=== PATIENT | female | born 1970 | race African-American/Black ===

== ENCOUNTER 2018-01-30 17:31 | Inpatient (IN) | payer OTHER ==
--- NOTE | 2018-01-30 18:41 | PDOC ---
History of Present Illness - General Chief Complaint: Injury Stated Complaint: FOOT PAIN Time Seen by Provider: 01/30/18 18:36 - History of Present Illness Initial Comments: 01/30/18 18:39 47-year-old female with a past medical history history significant for hypertension presents for evaluation of left ankle pain after slip and fall in the bathroom today. She did not hit her head. There was no loss of consciousness postinjury nausea vomiting headache or visual changes. L Ankle pain is her only complaint. Past History - Past Medical History Allergies/Adverse Reactions: Allergies Allergy/AdvReac Type Severity Reaction Status Date / Time No Known Allergies Allergy Verified 01/30/18 19:20 Home Medications: Ambulatory Orders Amlodipine Besylate 10 mg PO ASDIR 01/30/18 - Suicide/Smoking/Psychosocial Hx Smoking History: Never smoked Hx Alcohol Use: Yes (Social) Drug/Substance Use Hx: No Review of Systems - Review of Systems Musculoskeletal: Yes: Joint Pain *Physical Exam - Vital Signs Last Vital Signs Temp Pulse Resp BP Pulse Ox 97.5 F L 121 H 20 141/94 98 01/30/18 17:43 01/30/18 17:43 01/30/18 17:43 01/30/18 17:43 01/30/18 17:43 - Physical Exam Comments: 01/30/18 18:40 Left ankle skin color and temperature are normal. There is swelling about the medial aspect and lateral aspect of the left ankle. She is unable to flex and extend her ankle. She moves her toes she has no gross sensorimotor deficits. Is no tenderness about the knee proximal fibula or along its distal coarse. She is neurovascularly intact. Unable to tolerate stability testing at this point. Moderate Sedation - Procedure Monitoring Vital Signs: Procedure Monitoring Vital Signs Temperature 97.5 F L 01/30/18 17:43 Pulse Rate 121 H 01/30/18 17:43 Respiratory Rate 20 01/30/18 17:43 Blood Pressure 141/94 01/30/18 17:43 O2 Sat by Pulse Oximetry (%) 98 01/30/18 17:43 ED Treatment Course - RADIOLOGY Radiology Studies Ordered: Category Date Time Status ANKLE-LEFT [RAD] Stat Radiology 01/30/18 18:38 Ordered Medical Decision Making - Medical Decision Making 01/30/18 20:05 Under aseptic technique 10 mL of 1% lidocaine without epinephrine was injected intra-articularly to the left ankle. After appropriate anesthesia gentle traction and manipulation was done and fracture was reduced. Sugar tong and posterior splint was applied with a gentle Tico wrap. This was tolerated well. *DC/Admit/Observation/Transfer Diagnosis at time of Disposition: Ankle fracture, left - Discharge Dispostion Disposition: HOME Condition at time of disposition: Stable Decision to Admit order: No - Referrals Referrals: Mary Jo Dickinson [Primary Care Provider] - Trent Drummond MD [Staff Physician] - - Patient Instructions Printed Discharge Instructions: Ankle Fracture, DI for Ankle Fracture Additional Instructions: Please follow-up with orthopedic surgery in 2-3 days for further evaluation and treatment options. Return to the emergency room should symptoms worsen or go unresolved. He may continue to take her regular pain medicine as prescribed. Also elevate your ankle above the level of your heart to decrease the swelling. Again please remain nonweightbearing with the use of crutches and follow-up with orthopedic surgery in 2-3 days. Return to the emergency room should you have any further issues. - Post Discharge Activity
[2018-01-30] MEDS ORDERED: LIDOCAINE HCL 1%, 10 MG/ML (50 mL VIAL) SQ ONE (19:17)
[2018-01-30] MEDS ORDERED: LIDOCAINE HCL 1%, 10 MG/ML (20ML VIAL) ONE (19:20)
--- NOTE | 2018-01-30 20:28 | PDOC ---
*Physical Exam - Vital Signs Last Vital Signs Temp Pulse Resp BP Pulse Ox 97.5 F L 121 H 20 141/94 98 01/30/18 17:43 01/30/18 17:43 01/30/18 17:43 01/30/18 17:43 01/30/18 17:43 ED Treatment Course - Medications Given in the ED: ED Medications Discontinued Medications Generic Name Dose Route Start Last Admin Trade Name Freq PRN Reason Stop Dose Admin Lidocaine HCl 10 ml 01/30/18 19:17 01/30/18 19:20 Xylocaine 1% SQ 01/30/18 19:18 10 ml ONCE ONE Administration Medical Decision Making - Medical Decision Making 01/30/18 20:44 patient is placed of observation. patient signed out to Dr. Valdes/ Dr. wadsworth *DC/Admit/Observation/Transfer Diagnosis at time of Disposition: Inability to bear weight Ankle fracture, left Qualifiers: Encounter type: initial encounter Fracture type: closed Qualified Code(s): S82.892A - Other fracture of left lower leg, initial encounter for closed fracture - Discharge Dispostion Condition at time of disposition: Stable Decision to Admit order: Yes - Referrals Referrals: Trent Drummond MD [Staff Physician] - Mary Jo Dickinson [Primary Care Provider] - - Patient Instructions Printed Discharge Instructions: Ankle Fracture, DI for Ankle Fracture Additional Instructions: Please follow-up with orthopedic surgery in 2-3 days for further evaluation and treatment options. Return to the emergency room should symptoms worsen or go unresolved. He may continue to take her regular pain medicine as prescribed. Also elevate your ankle above the level of your heart to decrease the swelling. Again please remain nonweightbearing with the use of crutches and follow-up with orthopedic surgery in 2-3 days. Return to the emergency room should you have any further issues. - Post Discharge Activity
[2018-01-30] MEDS ORDERED: ACETAMINOPHEN 325 MG TABLET (FP) PO PRN (21:37)
--- NOTE | 2018-01-30 21:44 | HOSP ---
Physical Examination Vital Signs: Vital Signs Temperature 97.5 F L 01/30/18 17:43 Pulse Rate 121 H 01/30/18 17:43 Respiratory Rate 20 01/30/18 17:43 Blood Pressure 141/94 01/30/18 17:43 O2 Sat by Pulse Oximetry (%) 98 01/30/18 17:43
--- NOTE | 2018-01-30 21:56 | HP ---
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 Pt was sitting and when she stood up her L leg gave out and she fell on her knee and L side. pt attempted to get up and fell again. Denies hitting her head, LOC, or postinjury n/v, EAGLE or visual changes. L Ankle pain is her only complaint. pt denies any fevers, chills, sob, cp, n/v/d, urinary sxs. Of note pt has peripheral neuropathy and balance issues 2/2 her chemo tx in the past. In addition pt reports in the past 1-2 months joint pain in hands and feet 2/2 anastrazole tx (needs to be on for 10yrs). Has been following w/ neurologist Mary Jo Dickinson who dcd anastrazole 2 wks ago. pt says pain has not improved but has not worsened. ER course was notable for: (1)Under aseptic technique 10 mL of 1% lidocaine without epinephrine was injected intra-articularly to the left ankle. After appropriate anesthesia gentle traction and manipulation was done and fracture was reduced. Sugar tong and posterior splint was applied with a gentle Tico wrap. This was tolerated well. (2) L ankle XR - + fibular frx, per my read (3) pt unable to ambulate even w/ crutches. 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, will be removed soon R side was removed 2/2 infx PAST SURGICAL HISTORY: as per HPI Social History: Smoking: denies Alcohol: occasional Drugs: denies Family History: dad HTN, paternal side colon CA, lung CA Allergies No Known Allergies Allergy (Verified 01/30/18 19:20) HOME MEDICATIONS: anastrazole, was dcd 2 wks ago 2/2 causing joint pain zolidex injection q4wks B12 shots Home Medications Medication Instructions Recorded Amlodipine Besylate 10 mg PO ASDIR 01/30/18 REVIEW OF SYSTEMS as per HPI PHYSICAL EXAMINATION Vital Signs - 24 hr 01/30/18 17:43 Temperature 97.5 F L Pulse Rate 121 H Respiratory 20 Rate Blood Pressure 141/94 O2 Sat by Pulse 98 Oximetry (%) GENERAL: AOX3 NAD HEAD: NCAT EYES: EOMI, sclera anicteric, conjunctiva clear. No lid lag. EARS, NOSE, THROAT: nares patent, oropharynx clear without exudates. MMM NECK: Normal range of motion, supple without lymphadenopathy, JVD, or masses. LUNGS: CTAB HEART: RRR, normal S1 and S2 without m/r/g ABDOMEN: Soft, NT ND +BS, no guarding, no rebound, no masses. MUSCULOSKELETAL: Normal range of motion at all joints. No bony deformities or tenderness. UPPER EXTREMITIES: 2+ pulses, warm, well-perfused. No cyanosis. No clubbing. No peripheral edema. LOWER EXTREMITIES: 2+ pulses, warm, well-perfused. No peripheral edema. +LLE cast NEUROLOGICAL: Cranial nerves II-XII intact. Normal speech. chronic decreased sensation b/l hands, chronic decreased sensation b/l LE. strength 5/5 UE, 5/5 RLE, LLE unable to asses due to cast PSYCHIATRIC: Cooperative. Good eye contact. Appropriate mood and affect. SKIN: Warm, dry, normal turgor, no rashes or lesions noted, normal capillary refill. 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 Found w/ L fibular frx on wet read of XR, fracture reduced and splinted LLE fracture - L ankle XR - + fibular frx, per my read reduced and splinted in ED pt unable to ambulate even w/ crutches. says hard to use 2/2 peripheral neuropathy and weakness/pain in her hands pain ctl -tylenol AM labs chk vit D 25OH PT eval fall risk precautions consider ortho consult HTN c/w home dose amlodipine Breast Cancer - s/p b/l masectomy, chemo, and herceptin in 2013. stable anastrazole, was dcd by neurologist 2 wks ago 2/2 causing joint pain FEN no IVF replete prn sodium ctl diet ppx SQH Dispo obs 2/2 unable to ambulate even w/ crutches PT eval pt will likely need CECY at some point Visit type - Emergency Visit Emergency Visit: Yes Care time: The patient presented to the Emergency Department on the above date and was hospitalized for further evaluation of their emergent condition. - New Patient This patient is new to me today: Yes Date on this admission: 01/30/18 - Critical Care Critical Care patient: No
[2018-01-30 22:14] LABS: HEMATOCRIT 37.2 % (32.4-45.2); MCH 33.5 pg (25.7-33.7); MCHC 34.9 g/dl (32.0-36.0); MEAN PLT VOLUME 8.6 fl (7.5-11.1); PLATELET COUNT 328 K/MM3 (134-434); RBC 3.87 M/mm3 (3.60-5.2); RDW 13.8 % (11.6-15.6); WHITE BLOOD COUNT 8.6 K/mm3 (4.0-10.0)
[2018-01-30] MEDS ORDERED: HEPARIN NA (PORCINE) 5,000 UNITS/ML 1ML VIAL ONE (22:17)
[2018-01-30] MEDS: HEPARIN NA (PORCINE) 5,000 UNITS/ML 1ML VIAL SQ SCH (22:21)
--- NOTE | 2018-01-30 23:29 | PN ---
Teaching Attending Note Name of Resident: Klever Alejo ATTENDING PHYSICIAN STATEMENT I saw and evaluated the patient. I reviewed the resident's note and discussed the case with the resident. I agree with the resident's findings and plan as documented. SUBJECTIVE: OBJECTIVE: ASSESSMENT AND PLAN: 47 y/o female presented after the patient fell in the bathroom twisted her ankle leading to a fracture, patient came to the ER, for which she had a cast placed and is being admitted for PT evaluation due to unsafe discharge, patient cannot walk on her feet due to neuropathy plan: admit to med/surge c/w amlodipine 10mg daily PT evaluation start the patient on oxycodone 10/325mg q6hr prn neurology consult patient take b12 injections. repeat b12 levels repeat folate levels
[2018-01-30 23:43] LABS: ANION GAP 9 MMOL/L (8-16); BLOOD UREA NITROGEN 7 mg/dL (7-18); CALCIUM 9.3 mg/dL (8.5-10.1); CHLORIDE 103 mmol/L (98-107); CO2 27 mmol/L (21-32); CREATININE 0.8 mg/dL (0.55-1.3); GLUCOSE,RANDOM 93 mg/dL (74-106); MAGNESIUM 1.6 mg/dL (1.8-2.4); PHOSPHOROUS 3.3 mg/dL (2.5-4.9); POTASSIUM 3.8 mmol/L (3.5-5.1); SODIUM 139 mmol/L (136-145)
[2018-01-31] MEDS ORDERED: MAGNESIUM OXIDE 400 MG TABLET (FP) PO ONE (01:44)
[2018-01-31] MEDS: HEPARIN NA (PORCINE) 5,000 UNITS/ML 1ML VIAL SQ SCH (06:26)
[2018-01-31] MEDS: amLODIPine BESYLATE 10 MG TABLET (FP) PO SCH (10:14)
--- NOTE | 2018-01-31 12:39 | CONSULT ---
Consult - text type - Consultation Consultation Note: ORTHOPEDIC SURGERY CONSULTATION NOTE Department of Orthopedic Surgery HISTORY OF PRESENT ILLNESS Ms. Cordova is a 47 year old female who was admitted to [facility] via the ER due to a left ankle fracture, and inability to ambulate. The orthopedic service was consulted for left ankle fracture. The injury occurred yesterday afternoon around 3pm. The patient states she was in the bathroom getting up from the toilet when her right foot slipped, and she landed awkwardly onto her left foot. She tried to get up again onto her left ankle, however she had significant pain and was not able to get up. The patient notes pain and swelling of her left ankle, which improves with rest and elevation. Denies any other injuries. Denies constitutional complaints. She states that she has a history of neuropathy being treated by a neurologist, and has parasthesias of bilateral lower and upper extremities. Denies/Endorses tobacco use, drug use, alcohol abuse. The patient lives with her and uses no assistive devices at baseline. She was unable to ambulate with a walker or crutches while NWB on the LLE. FAMILY HISTORY na REVIEW OF SYMPTOMS A twelve-point review of systems was performed and was negative except as noted in HPI. PHYSICAL EXAM Constitutional: Alert and oriented to person, place, and time. Appears well- developed and well-nourished. No acute distress, appropriate mood and affect. Right Upper Extremity: Skin warm, dry, and intact; no lesions, rashes or ulcers noted. Muscle mass equal and symmetric to contralateral side. No atrophy noted. No masses or effusions noted. No tenderness to palpation all joints; nontender throughout rest of extremity. Full passive and active ROM, free from pain. Joints stable with no pathologic laxity. M/R/U/MSK/AX motor intact; Has some parasthesias of her distal fingers secondary to chronic neuropathy; 2+ radial pulses; Cap refill brisk. Tone and reflexes normal. Left Upper Extremity: Skin warm, dry, and intact; no lesions, rashes or ulcers noted. Muscle mass equal and symmetric to contralateral side. No atrophy noted. No masses or effusions noted. No tenderness to palpation all joints; nontender throughout rest of extremity. Full passive and active ROM, free from pain. Joints stable with no pathologic laxity. M/R/U/MSK/AX motor intact; Has some parasthesias of her distal fingers secondary to chronic neuropathy; 2+ radial pulses; Cap refill brisk. Tone and reflexes normal. Right Lower Extremity: Skin warm, dry, and intact; no lesions, rashes or ulcers noted. Muscle mass equal and symmetric to contralateral side. No atrophy noted. No masses or effusions noted. No tenderness to palpation all joints; nontender throughout rest of extremity. No cords or calf tenderness No significant calf/ankle edema. Full passive and active ROM, free from pain. Joints stable with no pathologic laxity. EHL/TA/GS motor intact; Has some parasthesias of her distal toes and forefoot and sole of her foot secondary to chronic neuropathy; 2+ DP pulses; Cap refill brisk. Tone and reflexes normal. Left Lower Extremity: Splint c/d/i - removed for evaluation of ankle; Skin warm , dry, and intact; no lesions, rashes or ulcers noted. Muscle mass equal and symmetric to contralateral side. No atrophy noted. No masses noted. Tender to palpation at the lateral malleolus, as well as the medial malleolus; Nontender throughout rest of extremity. No cords or calf tenderness. There is mild ankle swelling of the medial and lateral aspects of the ankle. Limted passive and active ROM, secondary to pain and swelling. Joints stable with no pathologic laxity. EHL/TA/GS motor intact; Has some parasthesias of her distal toes and forefoot and sole of her foot secondary to chronic neuropathy; 2+ DP pulses; Cap refill brisk. Tone and reflexes normal. Active Problems Problem Status Category Onset Ankle fracture, left Acute Medical Inability to bear weight Acute Medical Social History Smoking history Never smoked Hx Alcohol Use Yes: Social Allergies Allergy/AdvReac Type Severity Reaction Status Date / Time No Known Allergies Allergy Verified 01/30/18 19:20 Active Medications Generic Name Dose Route Start Last Admin Trade Name Freq PRN Reason Stop Dose Admin Acetaminophen 650 mg 01/30/18 21:37 01/31/18 04:18 Tylenol - PO 650 mg Q4H PRN Administration PAIN LEVEL 6-10 Amlodipine Besylate 10 mg 01/31/18 10:00 01/31/18 10:14 Norvasc - PO 10 mg DAILY SYDNIE Administration Heparin Sodium (Porcine) 5,000 unit 01/30/18 22:00 01/31/18 06:26 Heparin - SQ 5,000 unit TID SYDNIE Administration Vital Signs (last) Temp Pulse Resp BP Pulse Ox 99.0 F 105 H 20 116/63 98 01/31/18 06:00 01/31/18 06:00 01/31/18 06:00 01/31/18 06:00 01/30/18 17:43 Intake and Output 01/29/18 01/30/18 01/31/18 23:59 23:59 23:59 Intake Total 200 100 Balance 200 100 Intake: Oral 200 100 Other: Voiding Method Bedpan Weight 242 lb 8.136 oz 245 lb 4 oz Height 5 ft 8 in 5 ft 8 in Body Mass Index (BMI) 36.8 37.3 Weight Measurement Method Built in Bedscale Weight Measurement Method Est/Stated by Patient Laboratory 01/30/18 22:01 01/30/18 22:01 IMAGING I personally reviewed all radiographs, CT, and other imaging. They demonstrate a left distal fibula fracture, with widening of the medial clear space. No bony lesions, dislocations, or subluxations seen. ASSESSMENT AND PLAN Ms. Cordova is a 47 year old female presenting status post fall with a left sided distal fibula bimalleolar equivalent fracture. We have reviewed the imaging and clinical findings in detail, as well as their potential implications. This is an operative fracture. NPO past midnight. - Hold Heparin past midnight - Needs Medical Clearance for surgery NWB LLE in splint - Keep splint clean/dry, elevated, and iced CBC/BMP/Coags Type and Screen IVF when NPO: LR EKG CXR UA - Urine Preg Plan for Surgery 02/01/18 at 1pm. All questions were answered. Thank you for involving our team in the care of this patient. Please call us at [phone] with questions
[2018-01-31 14:26] LABS: HEMATOCRIT 35.2 % (32.4-45.2); HEMOGLOBIN 12.1 GM/dL (10.7-15.3); MCH 33.5 pg (25.7-33.7); MCHC 34.5 g/dl (32.0-36.0); MEAN CELL VOLUME 97.2 fl (80-96); MEAN PLT VOLUME 9.3 fl (7.5-11.1); PLATELET COUNT 281 K/MM3 (134-434); RBC 3.62 M/mm3 (3.60-5.2); RDW 13.6 % (11.6-15.6); WHITE BLOOD COUNT 4.9 K/mm3 (4.0-10.0)
[2018-01-31 14:35] LABS: INR 1.11 (0.83-1.09); PROTHROMBIN TIME (PATIENT) 13.1 SEC (9.7-13.0)
--- NOTE | 2018-01-31 14:51 | PN ---
Teaching Attending Note Name of Resident: Beata Griffiths ATTENDING PHYSICIAN STATEMENT I saw and evaluated the patient. I reviewed the resident's note and discussed the case with the resident. I agree with the resident's findings and plan as documented. SUBJECTIVE: Mrs Cordova complains of ankle pain but otherwise without complaint. No cp, sob, n/v. OBJECTIVE: Last Vital Signs Temp Pulse Resp BP Pulse Ox 37.0 C 103 H 20 137/83 98 01/31/18 15:44 01/31/18 15:44 01/31/18 15:44 01/31/18 15:44 01/30/18 17:43 Gen: nad, obese Pulm: ctab w/o w/r/r CV: rrr w/o m/r/g Abd: +bs, s/nt/nd Ext: L ankle wrapped CBC, BMP 01/31/18 13:55 01/31/18 13:55
[2018-01-31 15:02] LABS: ANION GAP 9 MMOL/L (8-16); BLOOD UREA NITROGEN 9 mg/dL (7-18); CALCIUM 9.1 mg/dL (8.5-10.1); CHLORIDE 104 mmol/L (98-107); CO2 27 mmol/L (21-32); CREATININE 0.6 mg/dL (0.55-1.3); GLUCOSE,RANDOM 90 mg/dL (74-106); PHOSPHOROUS 3.7 mg/dL (2.5-4.9); POTASSIUM 3.8 mmol/L (3.5-5.1); SODIUM 141 mmol/L (136-145)
--- NOTE | 2018-01-31 16:02 | PN ---
Physical Exam: SUBJECTIVE: Patient seen and examined at bed side this morning. States her pain in the left ankle is decreased. Denies any other symptoms. OBJECTIVE: Vital Signs Period Temp Pulse Resp BP Sys/Chavira Pulse Ox Last 24 Hr 97.5 F-99.0 F 99-121 19-20 116-141/63-94 98 GENERAL: Morbidly obese female, is lying in bed, awake, alert, and fully oriented, in no acute distress. HEAD: Normal with no signs of trauma. EYES: EOM intact, no pallor or icterus. ENT: Ears normal, moist mucous membranes. NECK: Supple, no JVD. LUNGS: B/L Breath sounds equal, clear to auscultation bilaterally, no wheezes, no crackles, no accessory muscle use. 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 HEART: Regular rate and rhythm, S1, S2 without murmur. ABDOMEN: Soft, nontender, no organomegaly. UPPER EXTREMITIES: 2+ pulses, warm, well-perfused, no edema. LOWER EXTREMITIES: 2+ pulses, warm, well-perfused, Left leg elevated, dressing in place over the left ankle, no color changes of the toes, able to move, normal sensation. NEUROLOGICAL: No facial droop, Normal speech, gait not observed. PSYCH: Normal mood, normal affect. SKIN: Warm, dry, normal turgor, no rashes or lesions noted Laboratory Results - last 24 hr 01/30/18 01/30/18 01/31/18 22:01 22:01 13:55 WBC 8.6 4.9 RBC 3.87 3.62 Hgb 13.0 12.1 Hct 37.2 35.2 MCV 96.0 97.2 H MCH 33.5 33.5 MCHC 34.9 34.5 RDW 13.8 13.6 Plt Count 328 281 MPV 8.6 9.3 PT with INR INR Sodium 139 Potassium 3.8 Chloride 103 Carbon Dioxide 27 Anion Gap 9 BUN 7 Creatinine 0.8 Creat Clearance w eGFR > 60 Random Glucose 93 Calcium 9.3 Phosphorus 3.3 Magnesium 1.6 L Blood Type Antibody Screen 01/31/18 01/31/18 01/31/18 13:55 13:55 13:55 WBC RBC Hgb Hct MCV MCH MCHC RDW Plt Count MPV PT with INR 13.10 H INR 1.11 H Sodium 141 Potassium 3.8 Chloride 104 Carbon Dioxide 27 Anion Gap 9 BUN 9 Creatinine 0.6 Creat Clearance w eGFR > 60 Random Glucose 90 Calcium 9.1 Phosphorus 3.7 Magnesium 2.0 Blood Type O POSITIVE Antibody Screen Negative Active Medications Generic Name Dose Route Start Last Admin Trade Name Freq PRN Reason Stop Dose Admin Acetaminophen 650 mg 01/30/18 21:37 01/31/18 04:18 Tylenol - PO 650 mg Q4H PRN Administration PAIN LEVEL 6-10 Amlodipine Besylate 10 mg 01/31/18 10:00 01/31/18 10:14 Norvasc - PO 10 mg DAILY SYDNIE Administration Heparin Sodium (Porcine) 5,000 unit 01/31/18 22:00 Heparin - SQ 01/31/18 22:01 ONCE ONE ASSESSMENT/PLAN: Patient is a 47 year old female with PMHX of HTN, Breast cancer s/p B/L masectomy 2015, chemo, and herceptin in 2013, peripheral neuropathy secondary to chemo presented s/p mechanical fall x2 in the bathroom # Left distal fibula fracture from mechanical fall s/p reduced and splinted in the ED Evaluated by Ortho who recommends surgery tomorrow NPO after midnight Type and screen done, Urine for preg negative, labs unremarkable, vitals stable. IV NS @ 100 mls/hr after midnight Pain control with PO tylenol Heparin sq on hold # HTN continue home dose Amlodipine 10 mg PO daily. # Breast Cancer s/p B/L masectomy and chemo on remission F/up as outpatient with heme/onc # Peripheral neuropathy likely due to chemo Has difficulty ambulating. Would recommend f/up with neurologist as outpatient. Anastrazole was discontinued 2 weeks ago due to arthritis and pain in her joints, as per the patient. # FEN IV IVF starting midnight Electrolytes WNL NPO after midnight # Prophylaxis For DVT: Heparin sq on hold. For GI: Not indicated # Code Status FUll Code # Dispo:Admitted in Med/Surg inpatient. Duration of stay unknown. Illness, Investigation and Plan of care explained to the patient. She verbalized understanding. Case discussed with Dr. Jaime. Visit type - Emergency Visit Emergency Visit: Yes ED Registration Date: 01/31/18 Care time: The patient presented to the Emergency Department on the above date and was hospitalized for further evaluation of their emergent condition. - New Patient This patient is new to me today: Yes Date on this admission: 01/31/18 - Critical Care Critical Care patient: No - Discharge Referral Referred to [facility] No
--- NOTE | 2018-01-31 16:57 | EKG ---
Test Reason : Blood Pressure : / mmHG Vent. Rate : 100 BPM Atrial Rate : 100 BPM P-R Int : 160 ms QRS Dur : 076 ms QT Int : 338 ms P-R-T Axes : 038 -10 013 degrees QTc Int : 436 ms NORMAL SINUS RHYTHM MINIMAL VOLTAGE CRITERIA FOR LVH, MAY BE NORMAL VARIANT BORDERLINE ECG NO PREVIOUS ECGS AVAILABLE Confirmed by KIM VALIENTE, ASHOK ([id number]) on 01/31/2018 4:57:11 PM Referred By: Confirmed By:ASHOK ALVAREZ MD
[2018-01-31] MEDS ORDERED: HEPARIN NA (PORCINE) 5,000 UNITS/ML 1ML VIAL SQ ONE (22:00)
[2018-02-01] MEDS ORDERED: SODIUM CHLORIDE 1,000 ML IV SCH (00:01)
[2018-02-01 08:09] LABS: HEMOGLOBIN 10.6 GM/dL (10.7-15.3); MCH 31.6 pg (25.7-33.7); MCHC 32.1 g/dl (32.0-36.0); MEAN CELL VOLUME 98.4 fl (80-96); PLATELET COUNT 230 K/MM3 (134-434); RBC 3.36 M/mm3 (3.60-5.2); RDW 13.8 % (11.6-15.6); WHITE BLOOD COUNT 4.5 K/mm3 (4.0-10.0)
[2018-02-01 08:17] LABS: INR 1.13 (0.83-1.09); PROTHROMBIN TIME (PATIENT) 13.3 SEC (9.7-13.0)
[2018-02-01 08:30] LABS: ANION GAP 8 MMOL/L (8-16); BLOOD UREA NITROGEN 9 mg/dL (7-18); CALCIUM 8.2 mg/dL (8.5-10.1); CHLORIDE 108 mmol/L (98-107); CO2 27 mmol/L (21-32); CREATININE 0.5 mg/dL (0.55-1.3); GLUCOSE,RANDOM 97 mg/dL (74-106); MAGNESIUM 1.9 mg/dL (1.8-2.4); PHOSPHOROUS 4.2 mg/dL (2.5-4.9); POTASSIUM 3.4 mmol/L (3.5-5.1); SODIUM 143 mmol/L (136-145)
--- NOTE | 2018-02-01 10:07 | PN ---
Physical Exam: SUBJECTIVE: Patient seen and examined at bed side. States she had sharp pain in the left lower ext since last night and noticed more swelling of the left leg extending towards the left knee. Denies fever, chills, rigors, sweating, chest pain, sob, cough, palpitation, abdominal pain, nasuea or vomiting. No acute overnight events. OBJECTIVE: Vital Signs Period Temp Pulse Resp BP Sys/Chavira Pulse Ox Last 24 Hr 98.4 F-98.6 F 97-103 18-20 130-137/80-83 98 GENERAL: Morbidly obese female, is lying in bed, awake, alert, and fully oriented, in no acute distress. HEAD: Normal with no signs of trauma. EYES: EOM intact, no pallor or icterus. ENT: Ears normal, moist mucous membranes. NECK: Supple, no JVD. LUNGS: B/L Breath sounds equal, clear to auscultation bilaterally, no wheezes, no crackles, no accessory muscle use. CHEST: B/L mastectomy, tissue spanisher in the left breast in place. HEART: Regular rate and rhythm, S1, S2 without murmur. ABDOMEN: Soft, nontender, no organomegaly. UPPER EXTREMITIES: 2+ pulses, warm, well-perfused, no edema. LOWER EXTREMITIES: 2+ pulses, warm, well-perfused, Left leg elevated, dressing in place over the left ankle, no color changes of the toes, able to move, normal sensation. NEUROLOGICAL: No facial droop, Normal speech, gait not observed. PSYCH: Normal mood, normal affect. SKIN: Warm, dry, normal turgor, no rashes or lesions noted Laboratory Results - last 24 hr 01/30/18 01/31/18 01/31/18 09:00 13:55 13:55 WBC 4.9 RBC 3.62 Hgb 12.1 Hct 35.2 MCV 97.2 H MCH 33.5 MCHC 34.5 RDW 13.6 Plt Count 281 MPV 9.3 PT with INR INR Sodium 141 Potassium 3.8 Chloride 104 Carbon Dioxide 27 Anion Gap 9 BUN 9 Creatinine 0.6 Creat Clearance w eGFR > 60 Random Glucose 90 Calcium 9.1 Phosphorus 3.7 Magnesium 2.0 Vitamin D 25-Hydroxy 73.8 Blood Type Antibody Screen 01/31/18 01/31/18 02/01/18 13:55 13:55 07:00 WBC 4.5 RBC 3.36 L Hgb 10.6 L Hct 33.0 MCV 98.4 H MCH 31.6 MCHC 32.1 RDW 13.8 Plt Count 230 MPV 9.0 PT with INR 13.10 H INR 1.11 H Sodium Potassium Chloride Carbon Dioxide Anion Gap BUN Creatinine Creat Clearance w eGFR Random Glucose Calcium Phosphorus Magnesium Vitamin D 25-Hydroxy Blood Type O POSITIVE Antibody Screen Negative 02/01/18 02/01/18 07:00 07:00 WBC RBC Hgb Hct MCV MCH MCHC RDW Plt Count MPV PT with INR 13.30 H INR 1.13 H Sodium 143 Potassium 3.4 L Chloride 108 H Carbon Dioxide 27 Anion Gap 8 BUN 9 Creatinine 0.5 L Creat Clearance w eGFR > 60 Random Glucose 97 Calcium 8.2 L Phosphorus 4.2 Magnesium 1.9 Vitamin D 25-Hydroxy Blood Type Antibody Screen Active Medications Generic Name Dose Route Start Last Admin Trade Name Freq PRN Reason Stop Dose Admin Acetaminophen 650 mg 01/30/18 21:37 01/31/18 04:18 Tylenol - PO 650 mg Q4H PRN Administration PAIN LEVEL 6-10 Amlodipine Besylate 10 mg 01/31/18 10:00 01/31/18 10:14 Norvasc - PO 10 mg DAILY SYDNIE Administration Sodium Chloride 1,000 mls @ 100 mls/hr 02/01/18 00:01 02/01/18 00:13 Normal Saline - IV 100 mls/hr ASDIR SYDNIE Administration Potassium Chloride 10 meq in 100 mls @ 100 mls/hr 02/01/18 09:45 Potassium Chloride 10 Meq Premix Ivpb - IVPB 02/01/18 11:44 Q60M SYDNIE ASSESSMENT/PLAN: Patient is a 47 year old female with PMHX of HTN, Breast cancer s/p B/L masectomy 2016, chemo, and herceptin in 2013, 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 Type and screen done. Hypokalemic 3.4, repleted. Normal Mg, phos. Continue IV NS @ 100 mls/hr Heparin sq on hold # Swelling of the left leg most likely due to the fracture However, would like to r/o DVT Duplex of leg pending # HTN continue home dose Amlodipine 10 mg PO daily. # Breast Cancer s/p B/L masectomy and chemo on remission F/up as outpatient with heme/onc # Peripheral neuropathy likely due to chemo Has difficulty ambulating. Would recommend f/up with neurologist as outpatient. Anastrazole was discontinued 2 weeks ago due to arthritis and pain in her joints, as per the patient. # FEN IV NS @ 100 mls/hr Electrolytes: Hypkalemia repleted NPO after midnight # Prophylaxis For DVT: Heparin sq on hold. For GI: Not indicated # Code Status FUll Code # Dispo:Admitted in Med/Surg inpatient. Duration of stay unknown. Illness, Investigation and Plan of care explained to the patient. She verbalized understanding. Case discussed with Dr. Jaime. Problem List - Problems (1) Ankle fracture, left Code(s): S82.892A - OTH FRACTURE OF LEFT LOWER LEG, INIT FOR CLOS FX Qualifiers: Encounter type: initial encounter Fracture type: closed Qualified Code(s) : S82.892A - Other fracture of left lower leg, initial encounter for closed fracture (2) Breast cancer Code(s): C50.919 - MALIGNANT NEOPLASM OF UNSP SITE OF UNSPECIFIED FEMALE BREAST (3) HTN (hypertension) Code(s): I10 - ESSENTIAL (PRIMARY) HYPERTENSION (4) Hypokalemia Code(s): E87.6 - HYPOKALEMIA (5) Inability to bear weight Code(s): R26.89 - OTHER ABNORMALITIES OF GAIT AND MOBILITY (6) Neuropathic arthropathy Code(s): M14.60 - CHARCOT'S JOINT, UNSPECIFIED SITE Visit type - Emergency Visit Emergency Visit: Yes ED Registration Date: 01/31/18 Care time: The patient presented to the Emergency Department on the above date and was hospitalized for further evaluation of their emergent condition. - New Patient This patient is new to me today: No - Critical Care Critical Care patient: No - Discharge Referral Referred to [facility] Med P.C.: No
[2018-02-01 11:07] LABS: ALBUMIN 2.8 g/dl (3.4-5.0)
[2018-02-01] MEDS: KCL 10 MEQ IVPB 10 MEQ/100 ML INFUS.BAG IVPB SCH ×2 (11:12→19:23)
[2018-02-01] MEDS: amLODIPine BESYLATE 10 MG TABLET (FP) PO SCH (11:12)
[2018-02-01] MEDS ORDERED: MIDAZOLAM HCL 2 MG/2 ML SINGLE DOSE VIAL ONE ×3 (12:10→13:21)
[2018-02-01] MEDS ORDERED: BUPIVACAINE HCL/PF 0.5% (5MG/ML) 10 ML VIAL ONE ×2 (12:10→13:40)
--- NOTE | 2018-02-01 12:15 | PN ---
Progress Note (short form) - Note Progress Note: Mrs. Cordova complains of pain and slight swelling in her LLE, but otherwise denies cp, sob, n/v. Last Vital Signs Temp Pulse Resp BP Pulse Ox 36.9 C 97 H 18 132/81 98 02/01/18 08:55 02/01/18 08:55 02/01/18 08:55 02/01/18 08:55 02/01/18 02:00 Gen: nad Pulm: ctab CV: rrr Abd: +bs, s/nt/nd Ext: LLE wrapped, RLE no c/c/e CBC, BMP 02/01/18 07:00 02/01/18 07:00 A/P -patient without chest pain, shortness of breath, or BLE edema -EKG NSR without abnormality -CXR reviewed and clear, no signs of CHF -patient without history of CAD and no risk factors - test negative -potassium replaced this am -venous duplex dopplers performed and negative for DVT -patient is low risk for intraoperative cardiac event and is medically cleared for surgery
[2018-02-01] MEDS ORDERED: oxyCODONE HCL 5 MG TABLET PO PRN ×2 (12:43)
[2018-02-01] MEDS ORDERED: ONDANSETRON 4 MG/2 ML VIAL IVPUSH PRN ×3 (12:43→18:08)
[2018-02-01] MEDS ORDERED: LACTATED RINGERS SOLUTION 1,000 ML IV SCH (12:45)
--- NOTE | 2018-02-01 13:09 | PN ---
Progress Note (short form) - Note Progress Note: ORTHOPEDIC SURGERY PROGRESS NOTE Department of Orthopedic Surgery SUBJECTIVE No acute events overnight. No complaints currently. Denies chest pain, shortness of breath, or calf pain. No nausea or vomiting. Tolerating oral intake. Pain control difficult overnight, but improving. PHYSICAL EXAMINATION General: Alert, oriented, cooperative and no distress. Lower Extremity: Dressing/splint intact; Skin intact, no lesions, rashes, blisters, or ulcers noted. Muscle mass equal and symmetric to contralateral side. No atrophy noted. No masses or effusions noted. No tenderness to palpation. LROM, secondary to pain. EHL/FHL motor intact; SILT distally; 2+ DP pulses; Cap refill brisk. DVT Exam: No evidence of DVT seen on physical exam; No cords or calf tenderness ; Intake & Output 01/30/18 01/31/18 02/01/18 23:59 23:59 23:59 Intake Total 200 500 Balance 200 500 Intake: Oral 200 500 Other: Voiding Method Toilet Toilet # Unmeasured Voids Void 1 1 Bowel Movement No No Weight 242 lb 8.136 oz 245 lb 4 oz Height 5 ft 8 in 5 ft 8 in Body Mass Index (BMI) 36.8 37.3 Weight Measurement Method [facility] Measurement Method Est/Stated by Patient Active Medications Generic Name Dose Route Start Last Admin Trade Name Freq PRN Reason Stop Dose Admin Acetaminophen 650 mg 01/30/18 21:37 01/31/18 04:18 Tylenol - PO 650 mg Q4H PRN Administration PAIN LEVEL 6-10 Amlodipine Besylate 10 mg 01/31/18 10:00 02/01/18 11:12 Norvasc - PO 10 mg DAILY SYDNIE Administration Fentanyl 50 mcg 02/01/18 12:43 Sublimaze Injection - IVPUSH [id number] PRN PAIN-PACU ORDER X 4 DOSES ONLY Sodium Chloride 1,000 mls @ 100 mls/hr 02/01/18 00:01 02/01/18 00:13 Normal Saline - IV 100 mls/hr ASDIR SYDNIE Administration Lactated Ringer's 1,000 mls @ 75 mls/hr 02/01/18 12:45 Lactated Ringers Solution IV ASDIR SYDNIE Ondansetron HCl 4 mg 02/01/18 12:43 Zofran Injection IVPUSH Q6H PRN NAUSEA AND/OR VOMITING Oxycodone HCl 5 mg 02/01/18 12:43 Roxicodone - PO Q3H PRN PAIN LEVEL 1-5 Oxycodone HCl 10 mg 02/01/18 12:43 Roxicodone - PO Q3H PRN PAIN LEVEL 6-10 Oxycodone HCl 10 mg 02/01/18 22:00 Oxycontin - PO 02/04/18 12:43 BID SYDNIE Vital Signs (last) Temp Pulse Resp BP Pulse Ox 98.5 F 97 H 18 132/81 98 02/01/18 08:55 02/01/18 08:55 02/01/18 08:55 02/01/18 08:55 02/01/18 02:00 Laboratory (coagulation) PT with INR 13.30 SEC (9.7-13.0) H 02/01/18 07:00 Laboratory 02/01/18 07:00 02/01/18 07:00 ASSESSMENT AND PLAN Ms. Cordova is a 47 year old female with a Left ankle fracture. - Pain control: Transition to oral pain medications, minimize narcotic use - Medical clearance appreciated (Duplex US of LE's negative for dvt) - Heparin Held - Ice/Elevation - NPO - Plan for surgery today.
--- NOTE | 2018-02-01 13:48 | PN ---
Teaching Attending Note Name of Resident: Beata Griffiths ATTENDING PHYSICIAN STATEMENT I saw and evaluated the patient. I reviewed the resident's note and discussed the case with the resident. I agree with the resident's findings and plan as documented. SUBJECTIVE: Mrs Cordova complains of LLE pain and swelling. No cp, sob, n/v. OBJECTIVE: Last Vital Signs Temp Pulse Resp BP Pulse Ox 37.0 C 104 H 18 151/93 98 02/01/18 13:32 02/01/18 13:32 02/01/18 13:32 02/01/18 13:32 02/01/18 02:00 Gen: nad Pulm: ctab w/o w/r/r CV: rrr w/o m/r/g Abd: +bs, s/nt/nd Ext: LLE wrapped CBC, BMP 02/01/18 07:00 02/01/18 07:00 ASSESSMENT AND PLAN: Problem List - Problems (1) Ankle fracture, left Assessment/Plan: -case d/w orthopedic surgery -plan for surgical repair today Code(s): S82.892A - OTH FRACTURE OF LEFT LOWER LEG, INIT FOR CLOS FX Qualifiers: Encounter type: initial encounter Fracture type: closed Qualified Code(s) : S82.892A - Other fracture of left lower leg, initial encounter for closed fracture (2) Hypokalemia Assessment/Plan: -replace prior to surgery Code(s): E87.6 - HYPOKALEMIA (3) Breast cancer Assessment/Plan: -outpatient management Code(s): C50.919 - MALIGNANT NEOPLASM OF UNSP SITE OF UNSPECIFIED FEMALE BREAST (4) Neuropathic arthropathy Assessment/Plan: -pain control -PT consult Code(s): M14.60 - CHARCOT'S JOINT, UNSPECIFIED SITE (5) HTN (hypertension) Assessment/Plan: -continue amlodipine Code(s): I10 - ESSENTIAL (PRIMARY) HYPERTENSION
[2018-02-01] MEDS ORDERED: ROCURONIUM BROMIDE 50 MG/5 ML VIAL ONE (14:11)
[2018-02-01] MEDS ORDERED: ceFAZolin SODIUM 1 GM VIAL IVPB ONE (14:20)
[2018-02-01] MEDS ORDERED: ceFAZolin SODIUM 1 GM VIAL ONE (14:20)
[2018-02-01] MEDS ORDERED: BUPIVACAINE HCL/PF 0.25% (2.5MG/ML) 10 ML VIAL ONE (16:03)
[2018-02-01] MEDS ORDERED: METOPROLOL TARTRATE 5 MG/5 ML VIAL ONE (16:03)
[2018-02-01] MEDS ORDERED: BUPIVACAINE HCL/PF 0.25% (2.5MG/ML) 10 ML VIAL IJ ONE (16:20)
[2018-02-01] MEDS ORDERED: DESFLURANE GAS 240 ML BOTTLE IH ONE (16:22)
[2018-02-01] MEDS ORDERED: NEOSTIGMINE METHYLSULFATE 0.5 MG/ML - 10 ML MDV ONE (16:42)
--- NOTE | 2018-02-01 16:58 | OPR ---
DATE OF OPERATION: 02/01/18 TITLE OF OPERATION: LEFT ANKLE ORIF PREOPERATIVE DIAGNOSIS: LEFT ANKLE FRACTURE POSTOPERATIVE DIAGNOSIS: LEFT ANKLE FRACTURE SURGEON: Hemant Mcgee DO FORMULATION CHEMIST: Abimael Krishnan DO ANESTHESIA: General anesthesia; Regional block SPECIMEN: None PROSTHETIC DEVICE/IMPLANT: Arthrex 5 hole distal fibula locking plate; 4 distal locking screws, 3 proximal cortical screws, 1 tight rope for syndesmosis. COMPLICATIONS: none EBL: 50 IVF: 900ml NS TOURNIQUET TIME: 112 min INDICATIONS FOR SURGERY: Ms. Cordova is a 47year old Female who presented in the preoperative setting with a chief complaint of left ankle fracture. Based on their pre-injury level of activity, surgical treatment was discussed. The risks and benefits of surgery and anesthesia were discussed in detail including but not limited to pain, bleeding, infection, scarring, damage to vessels and nerves, failure to obtain the desired result, failure to heal, failure to return to sport or work. Understanding the risks and benefits, Ms. Cordova and her opted to proceed with surgical management. SURGEON'S NARRATIVE: Ms. Cordova was seen in the preoperative area. Her left side was marked for surgery and the consent was reviewed and signed. Anesthesia gave her a popliteal block in the holding area. She was then brought back to the operating room. She was transferred to the OR table. All bony prominences were well padded. Anesthesia was induced. A time-out was held and all team members agreed on the operative side and planned procedure. Preoperative prophylactic antibiotics were indicated and 2g of Ancef were given prior to and within one hour of any incisions. Sequential compression devices were placed on the contralateral extremity for the duration of the surgery as part of comprehensive DVT prophylaxis protocol consisting of intraoperative SCD, early post operative mobilization, and post operative ASA 325 BID for chemoprophylaxsis. A thigh tourniquet was placed. The patient was positioned with the use of multiple sheets under the hip. We again verified that all bony prominences were well padded. The leg was then prepped and draped in the usual sterile fashion. The ankle was exanguinated with an Esmarch and the tourniquet was inflated. It remained inflated for 112 minutes. Attention was turned to the lateral ankle. An incision was marked out along the lateral fibula for a direct lateral approach based off of the level of the fracture. The skin was incised sharply with a 15-blade, then a metzenbaum scissor was used to dissect the deeper tissue. SPN was not in the operative field. The fracture was identified and the fracture hematoma and ends were cleaned using a dental pick and currette with care not to disrupt the fragments to later weaver them together. The fracture was copiously irrigated. Through manual reduction, a lion jaw clamp and pointed reduction clamp were used to restore fracture alignment and rotation. Fluoroscopy confirmed the reduction of the fracture. A lag screw was then placed by first drilling the anterior cortex with a 3.5mm drill perpendicular to the obllique fracture, followed by drilling the posterior cortex with a 2.5mm drill. I then measured the length. The lag screw measured 30 mm. The lag screw was placed, but did not have adequate bite. I decided to put another lag screw slightly proximal to the first lag screw, across the oblique fracture, this time measuring with a 2.7mm drill for the anterior cortex, and 2.0mm drill for the posterior cortex. I measured the length and it was a 20mm screw. I placed the screw and there was excellent compression of the fracture. The first 30mm lag screw was consequently removed. Attention was then turned to the plate. A 5-hole distal fibula locking plate was utilized for fixation. It was placed on the lateral fibula and correct position was verified using fluoroscopy. The plate was then placed and held in place with 4 locking screws distally, and 3 cortical screws proximally. Fluoroscopy was employed throughout plate application to verify correct positioning. Attention was then turned to evaluation of syndesmotic stability. A mortise X- ray was obtained and a stress examination using dorsiflexion and external rotation to evaluate the integrity of the ankle ligaments was performed. Under live fluoroscopy, syndesmotic and medial clear space integrity were evaluated, and we found widening of the medial clear space. It was determined at this point that adequate fixation through the syndesmosis was necessary, and a k- wire was placed through the plate through 4 cortices under fluoroscopy guidance. A 3.6mm cannulated drill was then placed over the k-wire across 4 cortices. The tightrope button was placed through the 4 cortices under fluoroscopic guidance, and flipped on the other side of the medal tibial cortex. The button was then placed into the plate laterally, and the tightrope was tightened, but not over-tightened. Re-evaluation of the syndesmosis showed adequate fixation and no medial clear space widening on stress. Biplanar fluoroscopy was employed throughout the case to confirm correct placement of all metal hardware. Attention was then turned to closure. The incision was copiously irrigated with sterile saline. Deep tissue was closed with 2-0 vicryl, and the skin was closed with 3-0 nylon in mattress form. At closure, all needle and sponge counts were correct. The toes were warm and well perfused at the end of the case. Xeroform, 4x4's and sterile-soft webril was applied. Then a standard AO splint with posterior splint with side U-shaped splint was applied. Ms. Cordova was then awoken and brought to the postoperative care unit in stable condition. There were no complications. I was scrubbed the entire case. There was no qualified certified surgical assistant or resident to assist with the case, so Dr. Abimael Krishnan DO served as team assistant throughout the case. POST-OPERATIVE PLAN: - The post-operative dressing should remain in place until follow up in our office in 10 days. The dressing should be kept clean/dry. - The leg should be elevated above the level of the heart as much as possible to decrease swelling and improve wound healing. - Ice to the ankle - OVERLOCK SLEEVE SETTER, please DC in AM - Transition to oral pain medications before discharge - Comprehensive DVT ppx with SCD on contralateral leg, early postoperative mobilization, Aspirin 325mg BID for 6 weeks for chemoprophylaxis - Physical therapy: Non-weight bearing left lower extremity - Dispo Planning Please call us at [phone] if you have any questions. Hemant Mcgee DO Orthopedic Surgery
[2018-02-01] MEDS ORDERED: HYDROmorphone *PCA* 10MG/50ML DISP.SYRIN PCA SCH ×2 (17:15→18:08)
[2018-02-01] MEDS: LACTATED RINGERS SOLUTION 1,000 ML IV SCH (17:45)
[2018-02-01] MEDS ORDERED: ACETAMINOPHEN 325 MG TABLET (FP) PO PRN (18:08)
[2018-02-01] MEDS ORDERED: oxyCODONE HCL 10 MG SUSTAINED ACTING TABLET PO SCH (22:00)
[2018-02-02 08:53] LABS: HEMATOCRIT 30.3 % (32.4-45.2); HEMOGLOBIN 9.9 GM/dL (10.7-15.3); MCH 31.8 pg (25.7-33.7); MCHC 32.7 g/dl (32.0-36.0); MEAN CELL VOLUME 97.1 fl (80-96); PLATELET COUNT 226 K/MM3 (134-434); RBC 3.12 M/mm3 (3.60-5.2); RDW 13.5 % (11.6-15.6); WHITE BLOOD COUNT 7.2 K/mm3 (4.0-10.0)
[2018-02-02] MEDS: amLODIPine BESYLATE 10 MG TABLET (FP) PO SCH (09:50)
--- NOTE | 2018-02-02 09:52 | PN ---
Progress Note, Physician Chief Complaint: day 1 s/p ORIF L ankle fx under GA and nerve block - Current Medication List Current Medications: Active Medications Acetaminophen (Tylenol -) 650 mg PO Q4H PRN PRN Reason: PAIN LEVEL 6-10 Amlodipine Besylate (Norvasc -) 10 mg PO DAILY [facility] Last Admin: 02/02/18 09:50 Dose: 10 mg Hydromorphone HCl (Dilaudid Cleaning Porter -) 0 mg COMBUSTION ANALYST COMBUSTION ANALYST [facility]; Protocol Stop: 02/08/18 17:08 Last Admin: 02/01/18 18:15 Dose: 10 mg Lactated Ringer's (Lactated Ringers Solution) 1,000 mls @ 75 mls/hr IV ASDIR SYDNIE Last Admin: 02/01/18 17:45 Dose: 100 mls Ondansetron HCl (Zofran Injection) 4 mg IVPUSH Q4H PRN PRN Reason: NAUSEA AND/OR VOMITING - Objective Vital Signs: Vital Signs Temperature 98.7 F 02/02/18 04:02 Pulse Rate 109 H 02/02/18 04:02 Respiratory Rate 18 02/02/18 04:02 Blood Pressure 130/92 02/02/18 04:02 O2 Sat by Pulse Oximetry (%) 97 02/01/18 18:56 Labs: CBC, BMP 02/02/18 08:00 INR, PTT INR 1.13 (0.83-1.09) H 02/01/18 07:00 Assessment/Plan Doing well after ankle fx ORIF. Minimal use of COMBUSTION ANALYST, but pt prefers to keep COMBUSTION ANALYST for at least one more day
[2018-02-02 10:25] LABS: ANION GAP 9 MMOL/L (8-16); BLOOD UREA NITROGEN 7 mg/dL (7-18); CALCIUM 8.2 mg/dL (8.5-10.1); CHLORIDE 109 mmol/L (98-107); CO2 26 mmol/L (21-32); CREATININE 0.5 mg/dL (0.55-1.3); GLUCOSE,RANDOM 87 mg/dL (74-106); POTASSIUM 3.7 mmol/L (3.5-5.1); SODIUM 144 mmol/L (136-145)
--- NOTE | 2018-02-02 10:33 | PN ---
Progress Note (short form) - Note Progress Note: ORTHOPEDIC SURGERY PROGRESS NOTE Department of Orthopedic Surgery SUBJECTIVE No acute events overnight. No complaints currently. Denies chest pain, shortness of breath, or calf pain. No nausea or vomiting. Tolerating oral intake. Pain controlled with FIRE ENGINE PUMP OPERATOR overnight. PHYSICAL EXAMINATION General: Alert, oriented, cooperative and no distress. Lower Extremity: Dressing/splint intact; Skin intact, no lesions, rashes or ulcers noted. Muscle mass equal and symmetric to contralateral side. No atrophy noted. No masses or effusions noted. No tenderness to palpation. Full passive and active ROM of toes, free from pain. EHL/FHL motor intact; Sensory unchanged from preop exam distally; 2+ DP pulses; Cap refill brisk. DVT Exam: No evidence of DVT seen on physical exam; No cords or calf tenderness ; No significant calf/ankle edema bilaterally. Intake & Output 01/31/18 02/01/18 02/02/18 23:59 23:59 23:59 Intake Total 500 1700 900 Output Total 50 Balance 500 1650 900 Intake: IV 1600 900 Lactated Ringers Solution 900 1,000 ml @ 75 mls/hr IV ASDIR SYDNIE Rx#:[id number] Normal Saline - 1,000 ml 500 @ 100 mls/hr IV ASDIR SYDNIE Rx#:[id number] IVPB 100 Oral 500 Output: Estimated Blood Loss 50 Other: Voiding Method Toilet Toilet Toilet # Unmeasured Voids Void 1 1 1 Bowel Movement No Yes No # Bowel Movements 1 Weight 245 lb 4 oz Height 5 ft 8 in Body Mass Index (BMI) 37.3 Weight Measurement Method Built in [facility] Active Medications Generic Name Dose Route Start Last Admin Trade Name Freq PRN Reason Stop Dose Admin Acetaminophen 650 mg 02/01/18 18:08 Tylenol - PO Q4H PRN PAIN LEVEL 6-10 Amlodipine Besylate 10 mg 02/02/18 10:00 02/02/18 09:50 Norvasc - PO 10 mg DAILY SYDNIE Administration Hydromorphone HCl 0 mg 02/01/18 18:08 02/01/18 18:15 Dilaudid Daytime Caregiver - FIRE ENGINE PUMP OPERATOR 02/08/18 17:08 10 mg FIRE ENGINE PUMP OPERATOR SYDNIE Administration Protocol Lactated Ringer's 1,000 mls @ 75 mls/hr 02/01/18 18:08 02/01/18 17:45 Lactated Ringers Solution IV 100 mls ASDIR SYDNIE Administration Ondansetron HCl 4 mg 02/01/18 18:08 Zofran Injection IVPUSH Q4H PRN NAUSEA AND/OR VOMITING Vital Signs (last) Temp Pulse Resp BP Pulse Ox 98.7 F 109 H 18 130/92 97 02/02/18 04:02 02/02/18 04:02 02/02/18 04:02 02/02/18 04:02 02/01/18 18:56 Laboratory (coagulation) PT with INR 13.30 SEC (9.7-13.0) H 02/01/18 07:00 Laboratory 02/02/18 08:00 02/02/18 08:00 ASSESSMENT AND PLAN Ms. Cordova is a 47 year old female s/p Left Ankle ORIF POD 1 - Pain control: Transition to oral pain medications, minimize narcotic use - D/C FIRE ENGINE PUMP OPERATOR this AM - DVT prophylaxis - ASA 325mg BID starting this AM for 6 weeks - Ice/Elevation of LLE - Elevate HOB, encourage oral intake - Appreciate medical management (Nutrition optimization, decubitus precautions heel/sacrum) - PT/OT; NWB Left Lower Extremity; OOB - Dispo planning - Detailed Post Operative Instructions given to patient's family
[2018-02-02] MEDS ORDERED: CEFAZOLIN 2 GM/D5W 2 GM/50 ML ML IVPB SCH (11:07)
[2018-02-02] MEDS ORDERED: oxyCODONE HCL 5 MG TABLET PO PRN (11:08)
[2018-02-02] MEDS ORDERED: morphine SULFATE 4 MG/ML VIAL IVPUSH PRN (11:09)
[2018-02-02] MEDS: ASPIRIN 325 MG ENTERIC COATED TABLET (FP) PO SCH ×2 (12:10→21:45)
[2018-02-02] MEDS: CEFAZOLIN 2 GM/D5W 2 GM/50 ML ML IVPB SCH ×2 (12:30→20:43)
--- NOTE | 2018-02-02 12:56 | PN ---
Progress Note, Physician Chief Complaint: Mrs Cordova says she is doing well, her pain is controlled. No cp, sob, n/v. - Current Medication List Current Medications: Active Medications Acetaminophen (Tylenol -) 650 mg PO Q4H PRN PRN Reason: PAIN LEVEL 6-10 Amlodipine Besylate (Norvasc -) 10 mg PO DAILY [facility] Last Admin: 02/02/18 09:50 Dose: 10 mg Aspirin (Ecotrin -) 325 mg PO BID [facility] Last Admin: 02/02/18 12:10 Dose: 325 mg Lactated Ringer's (Lactated Ringers Solution) 1,000 mls @ 75 mls/hr IV ASDIR [facility] Last Admin: 02/01/18 17:45 Dose: 100 mls Cefazolin Sodium/Dextrose (Ancef 2 Gm Premixed Ivpb -) 2 gm in 50 mls @ 100 mls /hr IVPB Q8H [facility] Stop: 02/03/18 04:59 Last Admin: 02/02/18 12:30 Dose: 100 mls/hr Morphine Sulfate (Morphine Sulfate) 4 mg IVPUSH Q4H PRN PRN Reason: PAIN LEVEL 7 - 10 Ondansetron HCl (Zofran Injection) 4 mg IVPUSH Q4H PRN PRN Reason: NAUSEA AND/OR VOMITING Oxycodone HCl (Roxicodone -) 5 mg PO Q4H PRN PRN Reason: PAIN LEVEL 1-5 Stop: 02/05/18 11:08 Oxycodone HCl (Roxicodone -) 10 mg PO Q4H PRN PRN Reason: PAIN LEVEL 6-10 Stop: 02/05/18 11:09 - Objective Vital Signs: Vital Signs Temperature 37.1 C 02/02/18 04:02 Pulse Rate 109 H 02/02/18 04:02 Respiratory Rate 18 02/02/18 04:02 Blood Pressure 130/92 02/02/18 04:02 O2 Sat by Pulse Oximetry (%) 97 02/01/18 18:56 Constitutional: Yes: No Distress, Calm, Obese Cardiovascular: Yes: Regular Rate and Rhythm. No: Gallop, Murmur, Rub Respiratory: Yes: Regular, CTA Bilaterally. No: Rales, Rhonchi, Wheezes Gastrointestinal: Yes: Normal Bowel Sounds, Soft. No: Distention, Tenderness Extremities: Yes: Other (LLE wrapped) Edema: No Labs: CBC, BMP 02/02/18 08:00 02/02/18 08:00 INR, PTT INR 1.13 (0.83-1.09) H 02/01/18 07:00 Problem List - Problems (1) Ankle fracture, left Code(s): S82.892A - OTH FRACTURE OF LEFT LOWER LEG, INIT FOR CLOS FX Qualifiers: Encounter type: initial encounter Fracture type: closed Qualified Code(s) : S82.892A - Other fracture of left lower leg, initial encounter for closed fracture (2) Hypokalemia Code(s): E87.6 - HYPOKALEMIA (3) Breast cancer Code(s): C50.919 - MALIGNANT NEOPLASM OF UNSP SITE OF UNSPECIFIED FEMALE BREAST (4) Neuropathic arthropathy Code(s): M14.60 - CHARCOT'S JOINT, UNSPECIFIED SITE (5) HTN (hypertension) Code(s): I10 - ESSENTIAL (PRIMARY) HYPERTENSION Assessment/Plan (1) Ankle fracture, left Assessment/Plan: -case d/w orthopedic surgery -surgery went well -wrapped -DVT PPx with ASA 325mg bid for 4-6 weeks -may need wheelchair on discharge, pending PT evaluation Code(s): S82.892A - OTH FRACTURE OF LEFT LOWER LEG, INIT FOR CLOS FX Qualifiers: Encounter type: initial encounter Fracture type: closed Qualified Code(s) : S82.892A - Other fracture of left lower leg, initial encounter for closed fracture (2) Hypokalemia Assessment/Plan: -replaced Code(s): E87.6 - HYPOKALEMIA (3) Breast cancer Assessment/Plan: -outpatient management Code(s): C50.919 - MALIGNANT NEOPLASM OF UNSP SITE OF UNSPECIFIED FEMALE BREAST (4) Neuropathic arthropathy Assessment/Plan: -pain control -PT consulted Code(s): M14.60 - CHARCOT'S JOINT, UNSPECIFIED SITE (5) HTN (hypertension) Assessment/Plan: -continue amlodipine Code(s): I10 - ESSENTIAL (PRIMARY) HYPERTENSION
[2018-02-02] MEDS: oxyCODONE HCL 5 MG TABLET PO PRN ×2 (15:21→21:44)
[2018-02-02] MEDS ORDERED: CEFAZOLIN 2 GM/D5W 50 ML IVPB SCH (18:00)
[2018-02-02] MEDS ORDERED: PT OWN MED DRAWER 7, Y5N ONE ×2 (19:42→21:37)
[2018-02-02] MEDS: LACTATED RINGERS SOLUTION 1,000 ML IV SCH (20:45)
[2018-02-03] MEDS: CEFAZOLIN 2 GM/D5W 2 GM/50 ML ML IVPB SCH (04:18)
[2018-02-03 07:59] LABS: BASO % 0.5 % (0-2.0); EOS % 0.7 % (0-4.5); HEMOGLOBIN 9.6 GM/dL (10.7-15.3); LYMPH % 17.5 % (8-40); MCH 31.5 pg (25.7-33.7); MCHC 32.2 g/dl (32.0-36.0); MEAN PLT VOLUME 8.6 fl (7.5-11.1); MONO % 11.1 % (3.8-10.2); NEUT % 70.2 % (42.8-82.8); PLATELET COUNT 212 K/MM3 (134-434); RBC 3.06 M/mm3 (3.60-5.2); RDW 13.6 % (11.6-15.6); WHITE BLOOD COUNT 4.8 K/mm3 (4.0-10.0)
[2018-02-03 08:33] LABS: ANION GAP 9 MMOL/L (8-16); BLOOD UREA NITROGEN 4 mg/dL (7-18); CALCIUM 8.5 mg/dL (8.5-10.1); CHLORIDE 104 mmol/L (98-107); CO2 27 mmol/L (21-32); CREATININE 0.4 mg/dL (0.55-1.3); GLUCOSE,RANDOM 98 mg/dL (74-106); MAGNESIUM 1.7 mg/dL (1.8-2.4); PHOSPHOROUS 3.5 mg/dL (2.5-4.9); POTASSIUM 3.3 mmol/L (3.5-5.1); SODIUM 139 mmol/L (136-145)
--- NOTE | 2018-02-03 10:02 | PN ---
Progress Note (short form) - Note Progress Note: ORTHOPEDIC SURGERY PROGRESS NOTE Department of Orthopedic Surgery SUBJECTIVE No acute events overnight. No complaints currently. Denies chest pain, shortness of breath, or calf pain. No nausea or vomiting. Tolerating oral intake. Pain controlled overnight. Doing well. PHYSICAL EXAMINATION General: Alert, oriented, cooperative and no distress. Lower Extremity: Dressing/splint intact; Skin intact, no lesions, rashes or ulcers noted. Muscle mass equal and symmetric to contralateral side. No atrophy noted. No masses or effusions noted. No tenderness to palpation. Full passive and active ROM of toes, free from pain. EHL/FHL motor intact; Sensory unchanged from preop exam distally; 2+ DP pulses; Cap refill brisk. DVT Exam: No evidence of DVT seen on physical exam; No cords or calf tenderness ; No significant calf/ankle edema bilaterally. Intake & Output 02/01/18 02/02/18 02/03/18 23:59 23:59 23:59 Intake Total 1700 2850 850 Output Total 50 Balance 1650 2850 850 Intake: IV 1600 2000 800 Lactated Ringers Solution 1900 800 1,000 ml @ 75 mls/hr IV ASDIR [facility] Rx#:[id number] Normal Saline - 1,000 ml 500 100 @ 100 mls/hr IV ASDIR [facility] Rx#:[id number] IVPB 100 150 50 Oral 700 Output: Estimated Blood Loss 50 Other: Voiding Method Toilet Bedpan Bedpan # Unmeasured Voids Void 1 2 Bowel Movement Yes No # Bowel Movements 1 Active Medications Generic Name Dose Route Start Last Admin Trade Name Freq PRN Reason Stop Dose Admin Acetaminophen 650 mg 02/01/18 18:08 Tylenol - PO Q4H PRN PAIN LEVEL 6-10 Amlodipine Besylate 10 mg 02/02/18 10:00 02/02/18 09:50 Norvasc - PO 10 mg DAILY [facility] Administration Aspirin 325 mg 02/02/18 11:30 02/02/18 21:45 Ecotrin - PO 325 mg BID [facility] Administration Lactated Ringer's 1,000 mls @ 75 mls/hr 02/01/18 18:08 02/02/18 20:45 Lactated Ringers Solution IV 75 mls/hr ASDIR [facility] Administration Morphine Sulfate 4 mg 02/02/18 11:09 Morphine Sulfate IVPUSH Q4H PRN PAIN LEVEL 7 - 10 Ondansetron HCl 4 mg 02/01/18 18:08 Zofran Injection IVPUSH Q4H PRN NAUSEA AND/OR VOMITING Oxycodone HCl 5 mg 02/02/18 11:08 Roxicodone - PO 02/05/18 11:08 Q4H PRN PAIN LEVEL 1-5 Oxycodone HCl 10 mg 02/02/18 11:08 02/02/18 21:44 Roxicodone - PO 02/05/18 11:09 10 mg Q4H PRN Administration PAIN LEVEL 6-10 Vital Signs (last) Temp Pulse Resp BP Pulse Ox 98.2 F 95 H 20 131/84 97 02/03/18 05:00 02/03/18 05:00 02/02/18 22:00 02/03/18 05:00 02/01/18 18:56 Laboratory (coagulation) PT with INR 13.30 SEC (9.7-13.0) H 02/01/18 07:00 Laboratory 02/03/18 06:45 02/03/18 06:45 ASSESSMENT AND PLAN Ms. Cordova is a 47 year old female s/p Left Ankle ORIF POD 2 - Pain control: Transition to oral pain medications, minimize narcotic use - DVT prophylaxis - ASA 325mg BID starting this AM for 6 weeks - Ice/Elevation of LLE - SCD to right lower extremity while in bed - Elevate HOB, encourage oral intake - Appreciate medical management (Nutrition optimization, decubitus precautions heel/sacrum) - PT/OT; NWB Left Lower Extremity; OOB - Dispo planning - Detailed Post Operative Instructions given to patient's family
[2018-02-03] MEDS: amLODIPine BESYLATE 10 MG TABLET (FP) PO SCH (10:23)
[2018-02-03] MEDS: ASPIRIN 325 MG ENTERIC COATED TABLET (FP) PO SCH ×2 (10:23→21:04)
[2018-02-03] MEDS ORDERED: MAGNESIUM SULF 50% (8.12 MEQ/2 ML-1 GM VIAL) IVPB ONE (12:00)
[2018-02-03] MEDS ORDERED: POTASSIUM CHLORIDE TABS 20 MEQ TABLET.ER (FP) PO ONE (12:00)
--- NOTE | 2018-02-03 12:21 | PN ---
Progress Note, Physician Chief Complaint: Mrs Crodova is without complaint. No cp, sob, n/v. Ankle pain is controlled. - Current Medication List Current Medications: Active Medications Acetaminophen (Tylenol -) 650 mg PO Q4H PRN PRN Reason: PAIN LEVEL 6-10 Amlodipine Besylate (Norvasc -) 10 mg PO DAILY [facility] Last Admin: 02/03/18 10:23 Dose: 10 mg Aspirin (Ecotrin -) 325 mg PO BID [facility] Last Admin: 02/03/18 10:23 Dose: 325 mg Morphine Sulfate (Morphine Sulfate) 4 mg IVPUSH Q4H PRN PRN Reason: PAIN LEVEL 7 - 10 Ondansetron HCl (Zofran Injection) 4 mg IVPUSH Q4H PRN PRN Reason: NAUSEA AND/OR VOMITING Oxycodone HCl (Roxicodone -) 5 mg PO Q4H PRN PRN Reason: PAIN LEVEL 1-5 Stop: 02/05/18 11:08 Oxycodone HCl (Roxicodone -) 10 mg PO Q4H PRN PRN Reason: PAIN LEVEL 6-10 Stop: 02/05/18 11:09 Last Admin: 02/02/18 21:44 Dose: 10 mg - Objective Vital Signs: Vital Signs Temperature 36.8 C 02/03/18 05:00 Pulse Rate 95 H 02/03/18 05:00 Respiratory Rate 20 02/02/18 22:00 Blood Pressure 131/84 02/03/18 05:00 O2 Sat by Pulse Oximetry (%) 97 02/01/18 18:56 Constitutional: Yes: No Distress, Calm, Obese Cardiovascular: Yes: Regular Rate and Rhythm. No: Gallop, Murmur, Rub Respiratory: Yes: Regular, CTA Bilaterally. No: Rales, Rhonchi, Wheezes Gastrointestinal: Yes: Normal Bowel Sounds, Soft. No: Distention, Tenderness Extremities: Yes: Other (LLE wrapped) Edema: No Labs: CBC, BMP 02/03/18 06:45 02/03/18 06:45 INR, PTT INR 1.13 (0.83-1.09) H 02/01/18 07:00 Problem List - Problems (1) Ankle fracture, left Code(s): S82.892A - OTH FRACTURE OF LEFT LOWER LEG, INIT FOR CLOS FX Qualifiers: Encounter type: initial encounter Fracture type: closed Qualified Code(s) : S82.892A - Other fracture of left lower leg, initial encounter for closed fracture (2) Hypokalemia Code(s): E87.6 - HYPOKALEMIA (3) Breast cancer Code(s): C50.919 - MALIGNANT NEOPLASM OF UNSP SITE OF UNSPECIFIED FEMALE BREAST (4) Neuropathic arthropathy Code(s): M14.60 - CHARCOT'S JOINT, UNSPECIFIED SITE (5) HTN (hypertension) Code(s): I10 - ESSENTIAL (PRIMARY) HYPERTENSION (6) Hypomagnesemia Code(s): E83.42 - HYPOMAGNESEMIA Assessment/Plan (1) Ankle fracture, left Assessment/Plan: -case d/w orthopedic surgery -doing very well -DVT PPx with ASA 325mg bid for 6 weeks -planning for discharge to [place] Code(s): S82.892A - OTH FRACTURE OF LEFT LOWER LEG, INIT FOR CLOS FX Qualifiers: Encounter type: initial encounter Fracture type: closed Qualified Code(s) : S82.892A - Other fracture of left lower leg, initial encounter for closed fracture (2) Hypokalemia/magnesemia Assessment/Plan: -replaced today Code(s): E87.6 - HYPOKALEMIA (3) Breast cancer Assessment/Plan: -outpatient management Code(s): C50.919 - MALIGNANT NEOPLASM OF UNSP SITE OF UNSPECIFIED FEMALE BREAST (4) Neuropathic arthropathy Assessment/Plan: -pain control -PT consulted Code(s): M14.60 - CHARCOT'S JOINT, UNSPECIFIED SITE (5) HTN (hypertension) Assessment/Plan: -continue amlodipine Code(s): I10 - ESSENTIAL (PRIMARY) HYPERTENSION
[2018-02-03] MEDS: oxyCODONE HCL 5 MG TABLET PO PRN (15:52)
[2018-02-03] MEDS ORDERED: PT OWN MED DRAWER 7, Y5N ONE (21:03)
[2018-02-04 07:22] LABS: BASO % 0.6 % (0-2.0); EOS % 1.2 % (0-4.5); HEMATOCRIT 32.6 % (32.4-45.2); HEMOGLOBIN 10.6 GM/dL (10.7-15.3); LYMPH % 28.2 % (8-40); MCH 31.6 pg (25.7-33.7); MCHC 32.6 g/dl (32.0-36.0); MEAN CELL VOLUME 96.9 fl (80-96); MEAN PLT VOLUME 8.8 fl (7.5-11.1); PLATELET COUNT 285 K/MM3 (134-434); RBC 3.37 M/mm3 (3.60-5.2); WHITE BLOOD COUNT 4.7 K/mm3 (4.0-10.0)
[2018-02-04 08:05] LABS: ANION GAP 8 MMOL/L (8-16); BLOOD UREA NITROGEN 5 mg/dL (7-18); CALCIUM 9.1 mg/dL (8.5-10.1); CHLORIDE 105 mmol/L (98-107); CO2 29 mmol/L (21-32); CREATININE 0.5 mg/dL (0.55-1.3); GLUCOSE,RANDOM 94 mg/dL (74-106); MAGNESIUM 2.2 mg/dL (1.8-2.4); PHOSPHOROUS 3.9 mg/dL (2.5-4.9); POTASSIUM 3.9 mmol/L (3.5-5.1); SODIUM 142 mmol/L (136-145)
[2018-02-04] MEDS: amLODIPine BESYLATE 10 MG TABLET (FP) PO SCH (09:24)
[2018-02-04] MEDS: ASPIRIN 325 MG ENTERIC COATED TABLET (FP) PO SCH ×2 (09:24→21:40)
--- NOTE | 2018-02-04 13:41 | PN ---
Progress Note (short form) - Note Progress Note: ORTHOPEDIC SURGERY PROGRESS NOTE Department of Orthopedic Surgery SUBJECTIVE No acute events overnight. No complaints currently. Denies chest pain, shortness of breath, or calf pain. No nausea or vomiting. Tolerating oral intake. Pain controlled overnight. Doing well in chair currently. PHYSICAL EXAMINATION General: Alert, oriented, cooperative and no distress. Lower Extremity: Dressing/splint intact; Skin intact, no lesions, rashes or ulcers noted. Muscle mass equal and symmetric to contralateral side. No atrophy noted. No masses or effusions noted. No tenderness to palpation. Full passive and active ROM of toes, free from pain. EHL/FHL motor intact; Sensory unchanged from preop exam distally; 2+ DP pulses; Cap refill brisk. DVT Exam: No evidence of DVT seen on physical exam; No cords or calf tenderness ; No significant calf/ankle edema bilaterally. Intake & Output 02/02/18 02/03/18 02/04/18 23:59 23:59 23:59 Intake Total 2850 1870 400 Balance 2850 1870 400 Intake: IV 2000 1200 Lactated Ringers Solution 1900 1200 1,000 ml @ 75 mls/hr IV ASDIR [facility] Rx#:[id number] Normal Saline - 1,000 ml 100 @ 100 mls/hr IV ASDIR [facility] Rx#:[id number] IVPB 150 150 Oral 700 520 400 Tube Feeding 0 Other: Voiding Method Bedpan Bedpan Bedpan # Unmeasured Voids Void 2 2 Bowel Movement No No Active Medications Generic Name Dose Route Start Last Admin Trade Name Freq PRN Reason Stop Dose Admin Acetaminophen 650 mg 02/01/18 18:08 Tylenol - PO Q4H PRN PAIN LEVEL 6-10 Amlodipine Besylate 10 mg 02/02/18 10:00 02/04/18 09:24 Norvasc - PO 10 mg DAILY [facility] Administration Aspirin 325 mg 02/02/18 11:30 02/04/18 09:24 Ecotrin - PO 325 mg BID [facility] Administration Morphine Sulfate 4 mg 02/02/18 11:09 Morphine Sulfate IVPUSH Q4H PRN PAIN LEVEL 7 - 10 Ondansetron HCl 4 mg 02/01/18 18:08 Zofran Injection IVPUSH Q4H PRN NAUSEA AND/OR VOMITING Oxycodone HCl 5 mg 02/02/18 11:08 Roxicodone - PO 02/05/18 11:08 Q4H PRN PAIN LEVEL 1-5 Oxycodone HCl 10 mg 02/02/18 11:08 02/03/18 15:52 Roxicodone - PO 02/05/18 11:09 10 mg Q4H PRN Administration PAIN LEVEL 6-10 Vital Signs (last) Temp Pulse Resp BP Pulse Ox 98.4 F 99 H 18 118/73 95 02/04/18 08:57 02/04/18 08:57 02/04/18 08:57 02/04/18 08:57 02/04/18 09:00 Laboratory (coagulation) PT with INR 13.30 SEC (9.7-13.0) H 02/01/18 07:00 Laboratory 02/04/18 06:45 02/04/18 06:45 ASSESSMENT AND PLAN Ms. Cordova is a 47 year old female s/p Left Ankle ORIF POD 3 - Pain control: Transition to oral pain medications, minimize narcotic use - DVT prophylaxis - ASA 325mg BID starting this AM for 6 weeks - Ice/Elevation of LLE - SCD to right lower extremity while in bed - Elevate HOB, encourage oral intake - Appreciate medical management (Nutrition optimization, decubitus precautions heel/sacrum) - PT/OT; NWB Left Lower Extremity; OOB - Dispo planning - Detailed Post Operative Instructions given to patient's family
--- NOTE | 2018-02-04 14:51 | PN ---
Physical Exam: SUBJECTIVE: Patient seen and examined at bed side this morning. No complaints. Pain in the left leg controlled. Denies fever, chills, rigors, sweating, chest pain, sob, cough, palpitation, abdominal pain, nasuea or vomiting. No acute overnight events. OBJECTIVE: Vital Signs Period Temp Pulse Resp BP Sys/Chavira Pulse Ox Last 24 Hr 98.0 F-98.4 F 90-110 18-20 112-150/73-91 95 GENERAL: Morbidly obese female, is lying in bed, awake, alert, and fully oriented, in no acute distress. HEAD: Normal with no signs of trauma. EYES: EOM intact, no pallor or icterus. ENT: Ears normal, moist mucous membranes. NECK: Supple, no JVD. LUNGS: B/L Breath sounds equal, clear to auscultation bilaterally, no wheezes, no crackles, no accessory muscle use. 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 HEART: Regular rate and rhythm, S1, S2 without murmur. ABDOMEN: Soft, nontender, no organomegaly. UPPER EXTREMITIES: 2+ pulses, warm, well-perfused, no edema. LOWER EXTREMITIES: 2+ pulses, warm, well-perfused, Left leg elevated, dressing in place over the left ankle, no color changes of the toes, able to move, sensation decreased at the tips of the left toe. NEUROLOGICAL: No facial droop, Normal speech, gait not observed. PSYCH: Normal mood, normal affect. SKIN: Warm, dry, normal turgor, no rashes or lesions noted Laboratory Results - last 24 hr 02/04/18 02/04/18 06:45 06:45 WBC 4.7 RBC 3.37 L Hgb 10.6 L Hct 32.6 MCV 96.9 H MCH 31.6 MCHC 32.6 RDW 14.0 Plt Count 285 D MPV 8.8 Absolute Neuts (auto) 2.8 Neutrophils % 59.0 Lymphocytes % 28.2 D Monocytes % 11.0 H Eosinophils % 1.2 Basophils % 0.6 Nucleated RBC % 0 Sodium 142 Potassium 3.9 Chloride 105 Carbon Dioxide 29 Anion Gap 8 BUN 5 L Creatinine 0.5 L Creat Clearance w eGFR > 60 Random Glucose 94 Calcium 9.1 Phosphorus 3.9 Magnesium 2.2 Active Medications Generic Name Dose Route Start Last Admin Trade Name Freq PRN Reason Stop Dose Admin Acetaminophen 650 mg 02/01/18 18:08 Tylenol - PO Q4H PRN PAIN LEVEL 6-10 Amlodipine Besylate 10 mg 02/02/18 10:00 02/04/18 09:24 Norvasc - PO 10 mg DAILY [facility] Administration Aspirin 325 mg 02/02/18 11:30 02/04/18 09:24 Ecotrin - PO 325 mg BID [facility] Administration Morphine Sulfate 4 mg 02/02/18 11:09 Morphine Sulfate IVPUSH Q4H PRN PAIN LEVEL 7 - 10 Ondansetron HCl 4 mg 02/01/18 18:08 Zofran Injection IVPUSH Q4H PRN NAUSEA AND/OR VOMITING Oxycodone HCl 5 mg 02/02/18 11:08 Roxicodone - PO 02/05/18 11:08 Q4H PRN PAIN LEVEL 1-5 Oxycodone HCl 10 mg 02/02/18 11:08 02/03/18 15:52 Roxicodone - PO 02/05/18 11:09 10 mg Q4H PRN Administration PAIN LEVEL 6-10 ASSESSMENT/PLAN: Patient is a 47 year old female with PMHX of HTN, Breast cancer s/p B/L masectomy 2015, chemo, and herceptin in 2013, 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 Pain well controlled Aspirin 325 mg PO BID started today x 6 weeks IV Morphine 4 mg Q4H PRN, Oxy 5 mg PO Q4H PRN, Oxy 10 mg Q4H PRN. Transition to PO pain meds. Elevation of of LLE. PT # HTN-controlled continue home dose Amlodipine 10 mg PO daily. # Breast Cancer s/p B/L masectomy and chemo on remission F/up as outpatient with heme/onc # Peripheral neuropathy likely due to chemo Has difficulty ambulating. Would recommend f/up with neurologist as outpatient. Anastrazole was discontinued 2 weeks ago due to arthritis and pain in her joints, as per the patient. # FEN Can tolerate PO. Electrolytes: WNL Regular diet # Prophylaxis For DVT: Aspirin 325 mg PO BID For GI: Not indicated # Code Status Full Code # Dispo:Admitted in Med/Surg inpatient. D/C planning to SNF Illness, Investigation and Plan of care explained to the patient. She verbalized understanding. Case discussed with Dr. Jaime. Problem List - Problems (1) Ankle fracture, left Code(s): S82.892A - OTH FRACTURE OF LEFT LOWER LEG, INIT FOR CLOS FX Qualifiers: Encounter type: initial encounter Fracture type: closed Qualified Code(s) : S82.892A - Other fracture of left lower leg, initial encounter for closed fracture (2) Breast cancer Code(s): C50.919 - MALIGNANT NEOPLASM OF UNSP SITE OF UNSPECIFIED FEMALE BREAST (3) HTN (hypertension) Code(s): I10 - ESSENTIAL (PRIMARY) HYPERTENSION (4) Hypokalemia Code(s): E87.6 - HYPOKALEMIA (5) Inability to bear weight Code(s): R26.89 - OTHER ABNORMALITIES OF GAIT AND MOBILITY (6) Neuropathic arthropathy Code(s): M14.60 - CHARCOT'S JOINT, UNSPECIFIED SITE Visit type - Emergency Visit Emergency Visit: Yes ED Registration Date: 01/31/18 Care time: The patient presented to the Emergency Department on the above date and was hospitalized for further evaluation of their emergent condition. - New Patient This patient is new to me today: No - Critical Care Critical Care patient: No - Discharge Referral Referred to [facility] Med P.C.: No
--- NOTE | 2018-02-04 15:14 | PN ---
Teaching Attending Note Name of Resident: Beata Griffiths ATTENDING PHYSICIAN STATEMENT I saw and evaluated the patient. I reviewed the resident's note and discussed the case with the resident. I agree with the resident's findings and plan as documented. SUBJECTIVE: Mrs Cordova is without complaint. No cp, sob, n/v. OBJECTIVE: Gen: nad Pulm: ctab w/o w/r/r CV: rrr w/o m/r/g Abd: +bs, s/nt/nd Ext: LLE wrapped ASSESSMENT AND PLAN: (1) Ankle fracture, left Assessment/Plan: -case d/w orthopedic surgery -doing very well -DVT PPx with ASA 325mg bid for 6 weeks -planning for discharge to [place] Code(s): S82.892A - OTH FRACTURE OF LEFT LOWER LEG, INIT FOR CLOS FX Qualifiers: Encounter type: initial encounter Fracture type: closed Qualified Code(s) : S82.892A - Other fracture of left lower leg, initial encounter for closed fracture (2) Hypokalemia/magnesemia Assessment/Plan: -replaced Code(s): E87.6 - HYPOKALEMIA (3) Breast cancer Assessment/Plan: -outpatient management Code(s): C50.919 - MALIGNANT NEOPLASM OF UNSP SITE OF UNSPECIFIED FEMALE BREAST (4) Neuropathic arthropathy Assessment/Plan: -pain control -PT following Code(s): M14.60 - CHARCOT'S JOINT, UNSPECIFIED SITE (5) HTN (hypertension) Assessment/Plan: -continue amlodipine Code(s): I10 - ESSENTIAL (PRIMARY) HYPERTENSION Problem List - Problems (1) Ankle fracture, left Code(s): S82.892A - OTH FRACTURE OF LEFT LOWER LEG, INIT FOR CLOS FX Qualifiers: Encounter type: initial encounter Fracture type: closed Qualified Code(s) : S82.892A - Other fracture of left lower leg, initial encounter for closed fracture (2) Hypokalemia Code(s): E87.6 - HYPOKALEMIA (3) Breast cancer Code(s): C50.919 - MALIGNANT NEOPLASM OF UNSP SITE OF UNSPECIFIED FEMALE BREAST (4) Neuropathic arthropathy Code(s): M14.60 - CHARCOT'S JOINT, UNSPECIFIED SITE (5) HTN (hypertension) Code(s): I10 - ESSENTIAL (PRIMARY) HYPERTENSION (6) Hypomagnesemia Code(s): E83.42 - HYPOMAGNESEMIA
[2018-02-04] MEDS ORDERED: PT OWN MED DRAWER 7, Y5N ONE (22:42)
[2018-02-04] MEDS: oxyCODONE HCL 5 MG TABLET PO PRN (23:19)
[2018-02-05 07:25] LABS: HEMATOCRIT 31.3 % (32.4-45.2); MCH 31.2 pg (25.7-33.7); MCHC 31.8 g/dl (32.0-36.0); MEAN PLT VOLUME 8.3 fl (7.5-11.1); PLATELET COUNT 304 K/MM3 (134-434); RBC 3.19 M/mm3 (3.60-5.2); RDW 13.7 % (11.6-15.6); WHITE BLOOD COUNT 3.7 K/mm3 (4.0-10.0)
[2018-02-05 07:50] LABS: ANION GAP 7 MMOL/L (8-16); BLOOD UREA NITROGEN 6 mg/dL (7-18); CHLORIDE 104 mmol/L (98-107); CO2 30 mmol/L (21-32); CREATININE 0.6 mg/dL (0.55-1.3); GLUCOSE,RANDOM 96 mg/dL (74-106); MAGNESIUM 1.9 mg/dL (1.8-2.4); PHOSPHOROUS 4.5 mg/dL (2.5-4.9); POTASSIUM 3.8 mmol/L (3.5-5.1); SODIUM 141 mmol/L (136-145)
[2018-02-05] MEDS: amLODIPine BESYLATE 10 MG TABLET (FP) PO SCH (09:15)
[2018-02-05] MEDS: ASPIRIN 325 MG ENTERIC COATED TABLET (FP) PO SCH ×2 (09:15→21:15)
--- NOTE | 2018-02-05 13:24 | PN ---
Progress Note, Physician Chief Complaint: Mrs Cordova is without complaint. No cp, sob, n/v. Ankle pain is controlled. - Current Medication List Current Medications: Active Medications Acetaminophen (Tylenol -) 650 mg PO Q4H PRN PRN Reason: PAIN LEVEL 6-10 Amlodipine Besylate (Norvasc -) 10 mg PO DAILY [facility] Last Admin: 02/05/18 09:15 Dose: 10 mg Aspirin (Ecotrin -) 325 mg PO BID [facility] Last Admin: 02/05/18 09:15 Dose: 325 mg Morphine Sulfate (Morphine Sulfate) 4 mg IVPUSH Q4H PRN PRN Reason: PAIN LEVEL 7 - 10 Ondansetron HCl (Zofran Injection) 4 mg IVPUSH Q4H PRN PRN Reason: NAUSEA AND/OR VOMITING - Objective Vital Signs: Vital Signs Temperature 36.6 C 02/05/18 10:00 Pulse Rate 100 H 02/05/18 10:00 Respiratory Rate 20 02/04/18 21:56 Blood Pressure 133/83 02/05/18 10:00 O2 Sat by Pulse Oximetry (%) 94 L 02/05/18 08:44 Constitutional: Yes: No Distress, Calm, Obese Cardiovascular: Yes: Regular Rate and Rhythm. No: Gallop, Murmur, Rub Respiratory: Yes: Regular, CTA Bilaterally. No: Rales, Rhonchi, Wheezes Gastrointestinal: Yes: Normal Bowel Sounds, Soft. No: Distention, Tenderness Extremities: Yes: WNL Edema: No Labs: CBC, BMP 02/05/18 06:30 02/05/18 06:30 INR, PTT INR 1.13 (0.83-1.09) H 02/01/18 07:00 Problem List - Problems (1) Ankle fracture, left Code(s): S82.892A - OTH FRACTURE OF LEFT LOWER LEG, INIT FOR CLOS FX Qualifiers: Encounter type: initial encounter Fracture type: closed Qualified Code(s) : S82.892A - Other fracture of left lower leg, initial encounter for closed fracture (2) Hypokalemia Code(s): E87.6 - HYPOKALEMIA (3) Breast cancer Code(s): C50.919 - MALIGNANT NEOPLASM OF UNSP SITE OF UNSPECIFIED FEMALE BREAST (4) Neuropathic arthropathy Code(s): M14.60 - CHARCOT'S JOINT, UNSPECIFIED SITE (5) HTN (hypertension) Code(s): I10 - ESSENTIAL (PRIMARY) HYPERTENSION (6) Hypomagnesemia Code(s): E83.42 - HYPOMAGNESEMIA Assessment/Plan (1) Ankle fracture, left Assessment/Plan: -case d/w orthopedic surgery -doing very well -DVT PPx with ASA 325mg bid for 6 weeks -planning for discharge to [place] Code(s): S82.892A - OTH FRACTURE OF LEFT LOWER LEG, INIT FOR CLOS FX Qualifiers: Encounter type: initial encounter Fracture type: closed Qualified Code(s) : S82.892A - Other fracture of left lower leg, initial encounter for closed fracture (2) Hypokalemia/magnesemia Assessment/Plan: -resolved Code(s): E87.6 - HYPOKALEMIA (3) Breast cancer Assessment/Plan: -outpatient management Code(s): C50.919 - MALIGNANT NEOPLASM OF UNSP SITE OF UNSPECIFIED FEMALE BREAST (4) Neuropathic arthropathy Assessment/Plan: -pain control -PT consulted Code(s): M14.60 - CHARCOT'S JOINT, UNSPECIFIED SITE (5) HTN (hypertension) Assessment/Plan: -continue amlodipine Code(s): I10 - ESSENTIAL (PRIMARY) HYPERTENSION
--- NOTE | 2018-02-05 13:56 | PN ---
Progress Note (short form) - Note Progress Note: ORTHOPEDIC SURGERY PROGRESS NOTE Department of Orthopedic Surgery SUBJECTIVE No acute events overnight. No complaints currently. Denies chest pain, shortness of breath, or calf pain. No nausea or vomiting. Tolerating oral intake. Pain controlled overnight. Doing very well. PHYSICAL EXAMINATION General: Alert, oriented, cooperative and no distress. Lower Extremity: Dressing/splint intact; Skin intact, no lesions, rashes or ulcers noted. Muscle mass equal and symmetric to contralateral side. No atrophy noted. No masses or effusions noted. No tenderness to palpation. Full passive and active ROM of toes, free from pain. EHL/FHL motor intact; Sensory unchanged from preop exam distally; 2+ DP pulses; Cap refill brisk. DVT Exam: No evidence of DVT seen on physical exam; No cords or calf tenderness ; No significant calf/ankle edema bilaterally. Intake & Output 02/03/18 02/04/18 02/05/18 23:59 23:59 23:59 Intake Total 1870 1125 300 Balance 1870 1125 300 Intake: IV 1200 Lactated Ringers Solution 1200 1,000 ml @ 75 mls/hr IV ASDIR SYDNIE Rx#:[id number] IVPB 150 Oral 520 1125 300 Tube Feeding 0 Other: Voiding Method Bedpan Bedpan Bedpan # Unmeasured Voids Void 2 200 1 Bowel Movement No No Active Medications Generic Name Dose Route Start Last Admin Trade Name Freq PRN Reason Stop Dose Admin Acetaminophen 650 mg 02/01/18 18:08 Tylenol - PO Q4H PRN PAIN LEVEL 6-10 Amlodipine Besylate 10 mg 02/02/18 10:00 02/05/18 09:15 Norvasc - PO 10 mg DAILY SYDNIE Administration Aspirin 325 mg 02/02/18 11:30 02/05/18 09:15 Ecotrin - PO 325 mg BID SYDNIE Administration Morphine Sulfate 4 mg 02/02/18 11:09 Morphine Sulfate IVPUSH Q4H PRN PAIN LEVEL 7 - 10 Ondansetron HCl 4 mg 02/01/18 18:08 Zofran Injection IVPUSH Q4H PRN NAUSEA AND/OR VOMITING Vital Signs (last) Temp Pulse Resp BP Pulse Ox 97.9 F 100 H 20 133/83 94 L 02/05/18 10:00 02/05/18 10:00 02/04/18 21:56 02/05/18 10:00 02/05/18 08:44 Laboratory (coagulation) PT with INR 13.30 SEC (9.7-13.0) H 02/01/18 07:00 Laboratory 02/05/18 06:30 02/05/18 06:30 ASSESSMENT AND PLAN Ms. Cordova is a 47 year old female s/p Left Ankle ORIF POD 4. - Pain control: Transition to oral pain medications, minimize narcotic use - DVT prophylaxis - ASA 325mg BID for 6 weeks post op. - Ice/Elevation of LLE - SCD to right lower extremity while in bed - Elevate HOB, encourage oral intake - Appreciate medical management (Nutrition optimization, decubitus precautions heel/sacrum) - PT/OT; NWB Left Lower Extremity; OOB - Dispo planning - Detailed Post Operative Instructions given to patient's family
[2018-02-05] MEDS ORDERED: PT OWN MED DRAWER 7, Y5N ONE (21:06)
[2018-02-06] MEDS: ASPIRIN 325 MG ENTERIC COATED TABLET (FP) PO SCH ×2 (09:45→21:32)
[2018-02-06] MEDS: amLODIPine BESYLATE 10 MG TABLET (FP) PO SCH (09:45)
[2018-02-06] MEDS ORDERED: oxyCODONE HCL 5 MG TABLET PO PRN (09:50)
[2018-02-06] MEDS ORDERED: DOCUSATE SODIUM 100 MG CAPSULE (FP) PO PRN (09:51)
--- NOTE | 2018-02-06 17:54 | PN ---
Physical Exam: SUBJECTIVE: Patient seen and examined at bed side this morning. Doing well with PT. No complaints. Denies severe pain at the surgical site, no numbness or tingling of lower ext, chest pain, sob, cough, palpitation, abdominal pain, nausea or vomiting. No acute overnight events. OBJECTIVE: Vital Signs Period Temp Pulse Resp BP Sys/Chavira Pulse Ox Last 24 Hr 97.9 F-98.3 F 88-111 18-20 126-150/76-97 94 GENERAL: Morbidly obese female, is lying in bed, awake, alert, and fully oriented, in no acute distress. HEAD: Normal with no signs of trauma. EYES: EOM intact, no pallor or icterus. ENT: Ears normal, moist mucous membranes. NECK: Supple, no JVD. LUNGS: B/L Breath sounds equal, clear to auscultation bilaterally, no wheezes, no crackles, no accessory muscle use. 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 HEART: Regular rate and rhythm, S1, S2 without murmur. ABDOMEN: Soft, nontender, no organomegaly. UPPER EXTREMITIES: 2+ pulses, warm, well-perfused, no edema. LOWER EXTREMITIES: 2+ pulses, warm, well-perfused, Left leg elevated, dressing in place over the left ankle, no color changes of the toes, able to move, sensation normal on the left toe. NEUROLOGICAL: No facial droop, Normal speech, gait not observed. PSYCH: Normal mood, normal affect. SKIN: Warm, dry, normal turgor, no rashes or lesions noted Active Medications Generic Name Dose Route Start Last Admin Trade Name Freq PRN Reason Stop Dose Admin Acetaminophen 650 mg 02/01/18 18:08 Tylenol - PO Q4H PRN PAIN LEVEL 6-10 Amlodipine Besylate 10 mg 02/02/18 10:00 02/06/18 09:45 Norvasc - PO 10 mg DAILY SYDNIE Administration Aspirin 325 mg 02/02/18 11:30 02/06/18 09:45 Ecotrin - PO 325 mg BID SYDNIE Administration Docusate Sodium 100 mg 02/06/18 09:51 Colace - PO BID PRN CONSTIPATION Ondansetron HCl 4 mg 02/01/18 18:08 Zofran Injection IVPUSH Q4H PRN NAUSEA AND/OR VOMITING Oxycodone HCl 5 mg 02/06/18 09:50 02/06/18 11:52 Roxicodone - PO 5 mg Q6H PRN Administration PAIN LEVEL 7 - 10 Pantoprazole Sodium 40 mg 02/06/18 17:15 Protonix Iv IVPUSH DAILY SYDNIE ASSESSMENT/PLAN: Patient is a 47 year old female with PMHX of HTN, Breast cancer s/p B/L masectomy 2015, chemo, and herceptin in 2013, 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 Aspirin 325 mg PO BID x 6 weeks Pain well controlled. Elevation of of LLE. PT # HTN-controlled continue home dose Amlodipine 10 mg PO daily. # Breast Cancer s/p B/L masectomy and chemo on remission F/up as outpatient with heme/onc # Peripheral neuropathy likely due to chemo Has difficulty ambulating. Would recommend f/up with neurologist as outpatient. Anastrazole was discontinued 2 weeks ago due to arthritis and pain in her joints, as per the patient. # FEN Can tolerate PO. Electrolytes: WNL Regular diet # Prophylaxis For DVT: Aspirin 325 mg PO BID For GI: Not indicated # Code Status Full Code # Dispo:Admitted in Med/Surg inpatient. D/C planning to SNF Illness, Investigation and Plan of care explained to the patient. She verbalized understanding. Case discussed with Dr. England. Problem List - Problems (1) Ankle fracture, left Code(s): S82.892A - OTH FRACTURE OF LEFT LOWER LEG, INIT FOR CLOS FX Qualifiers: Encounter type: initial encounter Fracture type: closed Qualified Code(s) : S82.892A - Other fracture of left lower leg, initial encounter for closed fracture (2) Breast cancer Code(s): C50.919 - MALIGNANT NEOPLASM OF UNSP SITE OF UNSPECIFIED FEMALE BREAST (3) HTN (hypertension) Code(s): I10 - ESSENTIAL (PRIMARY) HYPERTENSION (4) Hypokalemia Code(s): E87.6 - HYPOKALEMIA (5) Inability to bear weight Code(s): R26.89 - OTHER ABNORMALITIES OF GAIT AND MOBILITY (6) Neuropathic arthropathy Code(s): M14.60 - CHARCOT'S JOINT, UNSPECIFIED SITE Visit type - Emergency Visit Emergency Visit: Yes ED Registration Date: 01/31/18 Care time: The patient presented to the Emergency Department on the above date and was hospitalized for further evaluation of their emergent condition. - New Patient This patient is new to me today: No - Critical Care Critical Care patient: No - Discharge Referral Referred to [facility] No
[2018-02-06] MEDS: PANTOPRAZOLE SODIUM 40 MG VIAL IVPUSH SCH (18:15)
--- NOTE | 2018-02-06 18:17 | PN ---
Teaching Attending Note Name of Resident: Beata Griffiths ATTENDING PHYSICIAN STATEMENT I saw and evaluated the patient. I reviewed the resident's note and discussed the case with the resident. I agree with the resident's findings and plan as documented with exceptions below. SUBJECTIVE: Patient seen and examined. Left ankle pain under control, c/o gas. Doing well otherwise. OBJECTIVE: Vital Signs Period Temp Pulse Resp BP Sys/Chavira Pulse Ox Last 24 Hr 97.9 F-98.3 F 88-111 18-20 126-150/76-97 94 Intake & Output 02/03/18 02/04/18 02/05/18 02/06/18 23:59 23:59 23:59 23:59 Intake Total 1870 1125 1040 670 Balance 1870 1125 1040 670 General: sitting in bed in no acute distress Abdomen;Soft, NT, ND Extremities: Left leg cast, able to move toes freely, well perfused Chest: CTAB, no rales or wheezing Home Medications Medication Instructions Recorded Amlodipine Besylate 10 mg PO ASDIR 01/30/18 Percocet 10-325 mg Tablet 01/31/18 Active Medications Acetaminophen (Tylenol -) 650 mg PO Q4H PRN PRN Reason: PAIN LEVEL 6-10 Amlodipine Besylate (Norvasc -) 10 mg PO DAILY [facility] Last Admin: 02/06/18 09:45 Dose: 10 mg Aspirin (Ecotrin -) 325 mg PO BID [facility] Last Admin: 02/06/18 09:45 Dose: 325 mg Docusate Sodium (Colace -) 100 mg PO BID PRN PRN Reason: CONSTIPATION Ondansetron HCl (Zofran Injection) 4 mg IVPUSH Q4H PRN PRN Reason: NAUSEA AND/OR VOMITING Oxycodone HCl (Roxicodone -) 5 mg PO Q6H PRN PRN Reason: PAIN LEVEL 7 - 10 Last Admin: 02/06/18 11:52 Dose: 5 mg Pantoprazole Sodium (Protonix Iv) 40 mg IVPUSH DAILY [facility] Last Admin: 02/06/18 18:15 Dose: 40 mg ASSESSMENT AND PLAN: 47 year old female with PMHX of HTN, Breast cancer s/p B/L masectomy 2016, chemo , and herceptin in 2013, 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 PT. ASA 325 mg BID x 6 weeks. d/c morphine. oxycodone/tylenol prn. bowel regimen incentive spirometry Continue amlodipine Dispo pending [facility] availability. Plan discussed with patient in detail, all questions answered.
[2018-02-06] MEDS ORDERED: PT OWN MED DRAWER 7, Y5N ONE (21:15)
--- NOTE | 2018-02-07 08:18 | PN ---
Progress Note (short form) - Note Progress Note: ORTHOPEDIC SURGERY PROGRESS NOTE Department of Orthopedic Surgery SUBJECTIVE No acute events overnight. No complaints currently. Denies chest pain, shortness of breath, or calf pain. No nausea or vomiting. Tolerating oral intake. Pain controlled. Doing very well. No Changes. PHYSICAL EXAMINATION General: Alert, oriented, cooperative and no distress. Lower Extremity: Dressing/splint intact; Skin intact, no lesions, rashes or ulcers noted. Muscle mass equal and symmetric to contralateral side. No atrophy noted. No masses or effusions noted. No tenderness to palpation. Full passive and active ROM of toes, free from pain. EHL/FHL motor intact; Sensory unchanged from preop exam distally; 2+ DP pulses; Cap refill brisk. DVT Exam: No evidence of DVT seen on physical exam; No cords or calf tenderness ; No significant calf/ankle edema bilaterally. Intake & Output 02/04/18 02/05/18 02/06/18 23:59 23:59 23:59 Intake Total 1125 1040 250 Balance 1125 1040 250 Intake: Oral 1125 1040 250 Other: Voiding Method Bedpan Bedside Commode # Unmeasured Voids Void 200 1 1 Bowel Movement No No Active Medications Generic Name Dose Route Start Last Admin Trade Name Freq PRN Reason Stop Dose Admin Acetaminophen 650 mg 02/01/18 18:08 Tylenol - PO Q4H PRN PAIN LEVEL 6-10 Amlodipine Besylate 10 mg 02/02/18 10:00 02/06/18 09:45 Norvasc - PO 10 mg DAILY SYDNIE Administration Aspirin 325 mg 02/02/18 11:30 02/06/18 09:45 Ecotrin - PO 325 mg BID SYDNIE Administration Morphine Sulfate 4 mg 02/02/18 11:09 Morphine Sulfate IVPUSH Q4H PRN PAIN LEVEL 7 - 10 Ondansetron HCl 4 mg 02/01/18 18:08 Zofran Injection IVPUSH Q4H PRN NAUSEA AND/OR VOMITING Vital Signs (last) Temp Pulse Resp BP Pulse Ox 98.1 F 88 20 126/88 94 L 02/06/18 06:00 02/06/18 06:00 02/06/18 03:00 02/06/18 06:00 02/05/18 21:00 Laboratory (coagulation) PT with INR 13.30 SEC (9.7-13.0) H 02/01/18 07:00 Laboratory 02/05/18 06:30 02/05/18 06:30 ASSESSMENT AND PLAN Ms. Cordova is a 47 year old female s/p Left Ankle ORIF POD 6. - Pain control: Transition to oral pain medications, minimize narcotic use - DVT prophylaxis - ASA 325mg BID for 6 weeks post op. - Ice/Elevation of LLE - SCD to right lower extremity while in bed - Elevate HOB, encourage oral intake - Appreciate medical management (Nutrition optimization, decubitus precautions heel/sacrum) - Physical Therapy; NWB Left Lower Extremity; OOB - Dispo planning - [facility] when bed available. - Detailed Post Operative Instructions given to patient's family
[2018-02-07] MEDS ORDERED: PT OWN MED DRAWER 7, Y5N ONE ×2 (09:14→09:45)
[2018-02-07] MEDS: PANTOPRAZOLE SODIUM 40 MG VIAL IVPUSH SCH (09:32)
[2018-02-07] MEDS: amLODIPine BESYLATE 10 MG TABLET (FP) PO SCH (09:32)
[2018-02-07] MEDS: ASPIRIN 325 MG ENTERIC COATED TABLET (FP) PO SCH (09:33)
[2018-02-07 12:05] VITALS: BMI 37.2
--- NOTE | 2018-02-07 13:29 | DS ---
Physical Exam: SUBJECTIVE: Patient seen and examined at bed side this morning. Doing well with PT. No complaints. Denies severe pain at the surgical site, no numbness or tingling of lower ext, chest pain, sob, cough, palpitation, abdominal pain, nausea or vomiting. No acute overnight events. OBJECTIVE: Vital Signs Period Temp Pulse Resp BP Sys/Chavira Pulse Ox Last 24 Hr 98.2 F-98.6 F 101-111 18-20 124-150/76-97 96 PHYSICAL EXAM GENERAL: Morbidly obese female, is lying in bed, awake, alert, and fully oriented, in no acute distress. HEAD: Normal with no signs of trauma. EYES: EOM intact, no pallor or icterus. ENT: Ears normal, moist mucous membranes. NECK: Supple, no JVD. LUNGS: B/L Breath sounds equal, clear to auscultation bilaterally, no wheezes, no crackles, no accessory muscle use. 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 HEART: Regular rate and rhythm, S1, S2 without murmur. ABDOMEN: Soft, nontender, no organomegaly. UPPER EXTREMITIES: 2+ pulses, warm, well-perfused, no edema. LOWER EXTREMITIES: 2+ pulses, warm, well-perfused, Left leg elevated, dressing in place over the left ankle, no color changes of the toes, able to move, sensation normal on the left toe. NEUROLOGICAL: No facial droop, Normal speech, gait not observed. PSYCH: Normal mood, normal affect. 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 Was found to have left ankle fracture. Ortho consult was placed. ORIF was done on 02/01/18. Patient did well after surgery, pain was well controlled. There was no neurological symptoms. Started on Aspirin 325 mg PO BID for DVT prophylaxis and to continue for 6 weeks total ( started from 02/01/18). Post operative care instructions has been given to the patient. HTN-controlled.continued home dose Amlodipine 10 mg PO daily. Breast Cancer s/p B/L masectomy and chemo on remission. F/up as outpatient with heme/onc Chronic Peripheral neuropathy likely due to chemotherpy. Recommended to f/up with neurologist as outpatient. Plan of care explained to the patient. She verbalized understanding. Minutes to complete discharge: 45 Discharge Summary Reason For Visit: FRACTURE OF LEFT ANKLE INABILITY TO BEAR WEIGHT Current Active Problems Ankle fracture, left (Acute) Breast cancer (Acute) HTN (hypertension) (Acute) Hypokalemia (Acute) Hypomagnesemia (Acute) Inability to bear weight (Acute) Neuropathic arthropathy (Acute) Condition: Stable - Instructions Diet, Activity, Other Instructions: Please follow-up with orthopedic surgery in 2-3 days for further evaluation and treatment options. Return to the emergency room should symptoms worsen or go unresolved. He may continue to take her regular pain medicine as prescribed. Also elevate your ankle above the level of your heart to decrease the swelling. Again please remain nonweightbearing with the use of crutches and follow-up with orthopedic surgery in 2-3 days. Return to the emergency room should you have any further issues. ASA 325 mg twice daily for total of 6 weeks from 02/01/2019 Activity and wound care instructions per Dr. Mcgee Referrals: Trent Drummond MD [Staff Physician] - Mary Jo Dickinson [Primary Care Provider] - - Home Medications Comprehensive Discharge Medication List: Ambulatory Orders Amlodipine Besylate 10 mg PO ASDIR 01/30/18 Acetaminophen [Tylenol .Regular Strength -] 650 mg PO Q4H PRN tablet 02/07/18 Aspirin Coated [Ecotrin -] 325 mg PO BID #84 tablet. 02/07/18 Aspirin Coated [Ecotrin -] 325 mg PO BID 36 Days tablet. 02/07/18 Docusate Sodium [Colace -] 100 mg PO BID PRN capsule 02/07/18 Problem List - Problems (1) Ankle fracture, left Code(s): S82.892A - OTH FRACTURE OF LEFT LOWER LEG, INIT FOR CLOS FX Qualifiers: Encounter type: initial encounter Fracture type: closed Qualified Code(s) : S82.892A - Other fracture of left lower leg, initial encounter for closed fracture (2) Breast cancer Code(s): C50.919 - MALIGNANT NEOPLASM OF UNSP SITE OF UNSPECIFIED FEMALE BREAST (3) HTN (hypertension) Code(s): I10 - ESSENTIAL (PRIMARY) HYPERTENSION (4) Hypokalemia Code(s): E87.6 - HYPOKALEMIA (5) Inability to bear weight Code(s): R26.89 - OTHER ABNORMALITIES OF GAIT AND MOBILITY (6) Neuropathic arthropathy Code(s): M14.60 - CHARCOT'S JOINT, UNSPECIFIED SITE This patient is new to me today: Yes Date on this admission: 02/07/18 Emergency Visit: No Critical Care patient: No - Discharge Referral Referred to [facility] No
--- NOTE | 2018-02-07 13:38 | PN ---
Teaching Attending Note Name of Resident: Beata Griffiths ATTENDING PHYSICIAN STATEMENT I saw and evaluated the patient. I reviewed the resident's note and discussed the case with the resident. I agree with the resident's findings and plan as documented with exceptions below. SUBJECTIVE: Patient seen and examined. No new complaints, awaiting rehab placement. OBJECTIVE: Vital Signs Period Temp Pulse Resp BP Sys/Chavira Pulse Ox Last 24 Hr 98.2 F-98.6 F 101-111 18-20 124-150/76-97 96 Intake & Output 02/04/18 02/05/18 02/06/18 02/07/18 23:59 23:59 23:59 23:59 Intake Total 1125 1040 870 250 Balance 1125 1040 870 250 Weight 245 lb General: sitting in bed in no acute distress Extremities: left ankle cast, well perfused toes Home Medications Medication Instructions Recorded Amlodipine Besylate 10 mg PO ASDIR 01/30/18 Acetaminophen [Tylenol .Regular 650 mg PO Q4H PRN tablet 02/07/18 Strength -] Aspirin Coated [Ecotrin -] 325 mg PO BID #84 tablet. 02/07/18 Aspirin Coated [Ecotrin -] 325 mg PO BID 36 Days tablet. 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 PT. ASA 325 mg BID x 6 weeks. tylenol prn. bowel regimen incentive spirometry Continue amlodipine Dispo bed available at [facility] [facility] today. Plan discussed with patient in detail, all questions answered.
[2018-02-07 14:19] VITALS: BP 133/84; PULSE 101; TEMP 98.4
== END 2018-02-07 16:47 | DRG 494 ==
LOC: JER 17:31 → JERBED 20:46 → J6S 01-31 03:16 → OBSVTOIN 01-31 12:43
PROVIDERS: ADMIT Internal Medicine; ATTEND Hospitalist
PROC: 0QSKXZZ Reposition Left Fibula, External Approach (ICD-10-PCS; 2018-01-30)
PROC: 2W3MX2Z Immobilization of Left Lower Extremity using Cast (ICD-10-PCS; 2018-01-30)
PROC: 0QSK04Z Reposition Left Fibula with Internal Fixation Device, Open Approach (ICD-10-PCS; principal; 2018-02-01 13:30)
DX: S82.62XA Displaced fracture of lateral malleolus of left fibula, initial encounter for closed fracture (principal); I10 Essential (primary) hypertension; Z85.3 Personal history of malignant neoplasm of breast; E87.6 Hypokalemia; M14.60 Charcot's joint, unspecified site; E83.42 Hypomagnesemia; G62.0 Drug-induced polyneuropathy; T45.1X5S Adverse effect of antineoplastic and immunosuppressive drugs, sequela; Z90.13 Acquired absence of bilateral breasts and nipples; Y92.091 Bathroom in other non-institutional residence as the place of occurrence of the external cause; W01.0XXA Fall on same level from slipping, tripping and stumbling without subsequent striking against object, initial encounter
CPT/HCPCS: 36415; 71045-TC-FY; 73610-TC-LT-FY; 73630-TC-LT; 76001-TC-FY; 80048; 82040; 82306; 83735; 84100; 84703; 85025; 85027; 85610; 86850; 86900; 86901; 93005; 93010; 93970-TC; 94760; 97116-GP; 97162-GP; 99284-25; G0378; J1644; J7030